=== PATIENT | female | born 1985 | race Hispanic/Latino ===

== ENCOUNTER 2019-12-06 14:09 | Emergency (ER) | payer OTHER, SELFPAY ==
[2019-12-06 14:30] VITALS: BP 132/77; PULSE 83; RESP 16; TEMP 37; O2SAT 98
--- NOTE | 2019-12-06 14:42 | ED.SKABFB ---
HPI - Skin/Abscess/Foreign Bdy General Chief complaint: Skin/Abscess/Foreign Body Stated complaint: possible spider bite Time Seen by Provider: 12/06/19 14:43 Source: patient and RN notes reviewed Mode of arrival: ambulatory Limitations: language barrier (malay speaker) History of Present Illness HPI narrative: This is a 34 years old female presented office for evaluation of insect bite on her right forearm yesterday. Lesion is red, painful, and itchy. No treatment prior to arrival. Tetanus is up-to-date. Information obtained will telephone translation. Related Data Allergies Allergy/AdvReac Type Severity Reaction Status Date / Time No Known Allergies Allergy Verified 12/06/19 14:33 Review of Systems Review of Systems: Narrative: CONSTITUTIONAL: Denies fever ENT: Denies difficulty breathing CARDIOVASCULAR: Denies palpitation RESPIRATORY: Denies dyspnea GASTROINTESTINAL: Denies nausea, vomiting SKIN:Reports right arm pain, swelling and redness from bite. She did not witness the type of insect MUSCULOSKELETAL: Reports right arm pain from the insect bite NEUROLOGIC: Denies lightheaded/nubness PMFSH Social History Social History Gender identity (if verbalized by the patient): Female Comments At time of signature, I agree with nursing past medical, surgical, social and family history. There is no relevant family history pertinent to the presenting complaint. Exam Narrative: Exam Narrative: GENERAL: This is a well-nourished, well-developed patient, in no apparent distress. NECK: Neck supple, non-tender without lymphadenopathy, masses or thyromegaly. CARDIOVASCULAR: Regular rate and rhythm without murmurs, gallops, or rubs. RESPIRATORY: Clear to auscultation. Breath sounds equal bilaterally. No wheezes, rales, or rhonchi. GASTROINTESTINAL: Abdomen soft, non-tender, nondistended. Bowel sounds are active. No guarding. NEURO: awake, alert, and oriented to person, place and time. There were no obvious focal neurologic abnormalities. Steady gait EXTREMITIES: Right upper anterior upper arm noted a localize nodule with erythema, edematous; likely a localize reaction to bite; no obvious lymphadenitis. Normal range of motion. [place] Coma Scale Eye Opening: Spontaneous 4 [place] Coma Scale Motor: Obeys Commands 6 [place] Coma Scale Verbal: Oriented 5 Course Vital Signs Vital signs: Vital Signs Temperature 98.6 F 05/25/20 14:30 Pulse Rate 83 12/06/19 14:30 Respiratory Rate 16 12/06/19 14:30 Blood Pressure 132/77 12/06/19 14:30 Pulse Oximetry 98 12/06/19 14:30 Temperature 98.6 F 12/06/19 14:30 Pulse Rate 83 12/06/19 14:30 Respiratory Rate 16 12/06/19 14:30 Blood Pressure 132/77 12/06/19 14:30 Pulse Oximetry 98 12/06/19 14:30 MDM - Skin/Abscess/Foreign Bdy MDM Narrative Medical decision making narrative: Discharge instructions reviewed with patient, as well as provided in writing per nursing staff. The instructions also include specific and strict return/GO TO THE ER as well as f/u information. All questions have been answered, and the patient deny any further questions with discharge and discharge plan. Differential Diagnosis Differential diagnosis: Likely abscess of skin or subcutaneous tissue, viral exanthem, dermatophytosis, urticaria, herpes zoster, allergic reaction to drug, cellulitis, eczema, insect bites, impetigo and contact dermatitis Critical Care Time Critical Care Time Critical Care Time: No Discharge Plan Discharge Clinical Impression: Insect bite Qualifiers: Encounter type: initial encounter Site of insect bite: upper arm Laterality: right Qualified Code(s): S40.861A - Insect bite (nonvenomous) of right upper arm, initial encounter Patient Disposition: Home, Self-Care Condition: Stable Instructions: Insect Bite or Sting (ED) Additional Instructions: Take medicine with food Put ice on af
== END 2019-12-06 14:57 | disposition home or self-care (01) ==
PROVIDERS: Emergency Provider Nurse Practitioner
DX: S40.861A Insect bite (nonvenomous) of right upper arm, initial encounter (principal); W57.XXXA Bitten or stung by nonvenomous insect and other nonvenomous arthropods, initial encounter
CPT/HCPCS: 99213; G0463

== ENCOUNTER 2020-11-07 19:28 | Emergency (ER) | payer OTHER, SELFPAY ==
[2020-11-07 19:37] VITALS: BP 126/73; PULSE 80; RESP 16; TEMP 37.3; O2SAT 100
--- NOTE | 2020-11-07 19:50 | ED.ABDPAIN ---
HPI - Abdominal Pain General Chief Complaint: Abdominal Pain Stated Complaint: Stomach Pain Time Seen by Provider: 11/07/20 19:50 Source: patient and RN notes reviewed Mode of arrival: ambulatory Limitations: no limitations and language barrier History of Present Illness HPI narrative: daughter translate 1 harry CASTELLON elicited complaint: abdominal pain Related Data Allergies Allergy/AdvReac Type Severity Reaction Status Date / Time No Known Allergies Allergy Verified 02/18/20 09:26 Review of Systems Review of Systems: Narrative: CONSTITUTIONAL: Denies fever, chills, or sweats. EYES: Denies visual changes, redness, or discharge. ENT: Denies rhinorrhea, congestion, sore throat, or otalgia. CARDIOVASCULAR: Denies chest pain, palpitations, or edema. RESPIRATORY: Denies cough or dyspnea. GASTROINTESTINAL: Denies abdominal pain, nausea, vomiting, or diarrhea. GENITOURINARY: Denies dysuria or hematuria. SKIN: Denies rash or itching. MUSCULOSKELETAL: Denies back pain, joint pain, or myalgia. NEUROLOGIC: Denies headache, numbness, or weakness. PSYCHIATRIC: Denies anxiety or depression. All systems reviewed & are unremarkable except as noted in HPI and below PMFSH Past Medical History Medical History (Updated 11/08/20 @ 00:00 by [facility]) Healthy adult Surgical History Surgical History No pertinent past surgical history Social History Social History Smoking status: Never smoker Gender identity (if verbalized by the patient): Female Comments At time of signature, agree with nursing past medical, surgical, social and family history. There is no relevant family history pertinent to the presenting complaint Exam Narrative: Exam Narrative: GENERAL: Well-appearing, well-nourished, and in no acute distress. HEAD: Normocephalic, atraumatic. EYES: PERRLA and EOMI. ENT: Nares clear, no rhinorrhea or epistaxis. Mucous membranes moist. NECK: Supple. CHEST: Clear to auscultation. No respiratory distress. HEART: Regular rate and rhythm. No murmur heard. Normal peripheral pulses. ABDOMEN: Soft, nontender, nondistended, normal active bowel sounds. EXTREMITIES: Normal range of motion. No edema. SKIN: Warm, dry, no rash. NEURO: No focal deficits. Alert and oriented x3. Course Vital Signs Vital signs: Vital Signs Temperature 37.3 C 11/07/20 19:37 Pulse Rate 80 11/07/20 19:37 Respiratory Rate 16 11/07/20 19:37 Blood Pressure 126/73 11/07/20 19:37 Pulse Oximetry 100 11/07/20 19:37 Temperature 37.3 C 11/07/20 19:37 Pulse Rate 80 11/07/20 19:37 Respiratory Rate 16 11/07/20 19:37 Blood Pressure 126/73 11/07/20 19:37 Pulse Oximetry 100 11/07/20 19:37 MDM - Abdominal Pain Differential Diagnosis Differential diagnosis: Likely abdominal pain, gastroenteritis and other (GERD) Medical Records Attestation: I reviewed the patient's medical records. Critical Care Time Critical Care Time Critical Care Time: No Discharge Plan Discharge Clinical Impression: Gastroesophageal reflux disease, Abdominal pain Patient Disposition: Home, Self-Care Condition: Stable Instructions: GERD (Gastroesophageal Reflux Disease) (ED) Additional Instructions: Increase oral fluids A bland diet can consist of--BRAT diet which is bananas, rice, applesauce, and toast Avoid fried, greasy, fatty, fried foods Avoid caffeine, nicotine, and alcohol Return to your regular diet in the next 3-4 days Start Prilosec daily Tylenol for pain Sometimes ibuprofen/Aleve can cause increased stomach upset [id number] Imodium if develop diarrhea Follow-up with her PCP if continued problems or uncontrolled pain If your symptoms persist, change or worsen significantly before you can contact your personal physician then please, without delay, go to the emergency department for further evaluation. Follow-u
--- NOTE | 2020-11-07 20:08 | ED.ABDPAIN ---
HPI - Abdominal Pain General Chief Complaint: Abdominal Pain Stated Complaint: Stomach Pain Time Seen by Provider: 11/07/20 19:50 Source: patient, family, RN notes reviewed and old records reviewed Mode of arrival: ambulatory Limitations: language barrier History of Present Illness HPI narrative: 35 year old female who presents to [facility] care with complaint of right upper abdominal pain for the past week duration. Patient speaks Georgian, daughter is here to translate. Patient denies any episodes of nausea, vomiting or diarrhea, states no known episodes of radiation to her back or any diaphoresis. Patient states that she has had normal bowel movement, no changes in diet or appetite or any relation to pain with meals. Patient denies any other family member ill, states pain with palpation and with some movements. MD elicited complaint: abdominal pain Pertinent past history: none Onset (ago): week(s) (1) Pain Consistency: intermittent Severity: moderate Pain scale (0-10): 5 Quality: aching Migration to: no migration Related Data Allergies Allergy/AdvReac Type Severity Reaction Status Date / Time No Known Allergies Allergy Verified 02/18/20 09:26 Review of Systems Review of Systems: Narrative: CONSTITUTIONAL: Denies fever, chills, or sweats. EYES: Denies visual changes, redness, or discharge. ENT: Denies rhinorrhea, congestion, sore throat, or otalgia. CARDIOVASCULAR: Denies chest pain, palpitations, or edema. RESPIRATORY: Denies cough or dyspnea. GASTROINTESTINAL: Positive for right upper abdominal pain, no nausea, vomiting, or diarrhea. GENITOURINARY: Denies dysuria or hematuria. SKIN: Denies rash or itching. MUSCULOSKELETAL: Denies back pain, joint pain, or myalgia. NEUROLOGIC: Denies headache, numbness, or weakness. PSYCHIATRIC: Denies anxiety or depression. All systems reviewed & are unremarkable except as noted in HPI and below PMFSH Past Medical History Medical History (Updated 11/14/20 @ 08:11 by Trish Torres NP) Headache Surgical History Surgical History No pertinent past surgical history Family History Family History (Updated 11/14/20 @ 08:11 by Trish Torres NP) Other No significant family history Social History Social History (Updated 11/12/20 @ 21:11 by Trish Torres NP) Smoking status: Never smoker Alcohol intake: never Substance use: never Living arrangements: with family Gender identity (if verbalized by the patient): Female Comments At time of signature, agree with nursing past medical, surgical, social and family history. There is no relevant family history pertinent to the presenting complaint Exam Narrative: Exam Narrative: GENERAL: Well-appearing, well-nourished, and in no acute distress. HEAD: Normocephalic, atraumatic. EYES: PERRLA and EOMI. ENT: Nares clear, no rhinorrhea or epistaxis. Mucous membranes moist.TM's normal with good light reflex, throat pink with no exudates ,lesions or tonsil enlargement NECK: Supple.no lymphadenopathy CHEST: Clear to auscultation. No respiratory distress.SAO2 100% on room air HEART: Regular rate and rhythm. No murmur heard. Normal peripheral pulses. ABDOMEN: Soft, tender right upper abdomen, nondistended, normal active bowel sounds.No radiation of pain, no associated nausea or vomiting, denies any diarrhea episodes, no diaphoresis or radiation of pain to back or other areas of abdomen. EXTREMITIES: Normal range of motion. No edema. SKIN: Warm, dry, no rash. NEURO: No focal deficits. Alert and oriented x3. Course Vital Signs Vital signs: Vital Signs Temperature 37.3 C 11/07/20 19:37 Pulse Rate 80 11/07/20 19:37 Respiratory Rate 16 11/07/20 19:37 Blood Pressure 126/73 11/07/20 19:37 Pulse Oximetry 100 11/07/20 19:37 Temperature 37.3 C 11/07/20 19:37 Pulse Rate 80 11/07/20 19:37 Respiratory Rate 16 11/07/20 19:37 Blood Pressure 126/73
== END 2020-11-07 20:22 | disposition home or self-care (01) ==
PROVIDERS: Emergency Provider Registered Nurse
DX: K21.9 Gastro-esophageal reflux disease without esophagitis (principal)
CPT/HCPCS: 99213; G0463

== ENCOUNTER 2023-04-30 08:19 | Emergency (ER) | payer OTHER, SELFPAY ==
--- NOTE | 2023-04-30 08:20 | ED.GENADULT ---
HPI - General Adult General Chief complaint: Upper Respiratory Infection Stated complaint: Bodyaches Time Seen by Provider: 04/30/23 08:29 Source: patient, RN notes reviewed, old records reviewed and software test and validation engineer (Chose to use daughter, tele software test and validation engineer offered) Mode of arrival: ambulatory Limitations: no limitations History of Present Illness HPI narrative: 37-year-old female presents to the [facility] with complaints of body aches, headache for 2 days. Has taken Excedrin. Denies fevers, chest pain, abdominal pain. Onset (ago): day(s) (1) Treatments prior to arrival: other (Excedrin) Related Data Allergies Allergy/AdvReac Type Severity Reaction Status Date / Time No Known Allergies Allergy Verified 04/30/23 08:25 Review of Systems Review of Systems: All systems reviewed & are unremarkable except as noted in HPI and below Constitutional: Constitutional: Reports as per HPI, Reports body ache(s), Reports fatigue and Reports headache(s) Eyes: Eyes: Reports no additional eye complaints ENT: Reports system reviewed and no additional complaints, except as documented Cardiovascular: Cardiovascular: Reports no additional cardiovascular complaints, Denies chest pain and Denies dyspnea Respiratory: Respiratory: Reports no additional respiratory complaints, Denies chest congestion, Denies cough and Denies dyspnea Gastrointestinal: Gastrointestinal: Reports no additional gastrointestinal complaints, Denies abdominal pain, Denies nausea and Denies vomiting Musculoskeletal: Musculoskeletal: Reports no additional musculoskeletal complaints Integumentary/Breasts: Skin/Breast: Reports system reviewed and no additional complaints, except as docu Neurologic: Reports system reviewed and no additional complaints, except as documented Psychiatric: Psychiatric: Reports no additional psychiatric complaints Allergic/Immunologic: Allergic/Immunologic: Reports no additional allergic/immunologic complaints [facility] Past Medical History Medical History (Updated 04/30/23 @ 08:48 by Krista Herrera APRN) Fibroids Uterine, followed by truck crane operator helper provider Headache Surgical History Surgical History No pertinent past surgical history Family History Family History Other No significant family history Social History Social History Smoking status: Never smoker Alcohol intake: never Substance use: never Living arrangements: with family Gender identity (if verbalized by the patient): Female Comments At the time of my signature, I reviewed and agree with the nursing past medical, surgical, social, and family history. There is no relevant family history pertinent to the patient complaint. Exam Const: General: cooperative, healthy appearing, comfortable, no acute distress, well developed, alert and well nourished Nutritional Appearance: well nourished Orientation/consciousness: patient oriented x3 Limitations: no limitations HENMT: Head: normal to inspection Ears: hearing grossly normal bilaterally, external ears normal, TM's normal bilaterally, EAC's normal, mastoids normal and no periauricular adenopathy Face/Nose/Sinus: Normal external nose present, Normal nares present, Normal nasal mucous membranes and turbinates present, normal facial exam and face symmetric Face and sinus: normal facial exam and face symmetric Mouth: Yes Normal oral and palatal mucosa present, Yes lip normal and Yes moist mucous membranes Throat: posterior oropharynx normal, uvula midline and postnasal drainage Eyes: General: appearance normal, both eyes and all related structures Alignment and Position: alignment normal Periorbital: periorbital findings normal Pupils: Equal, round and reactive pupils present EOM: EOMs intact bilaterally Neck: Neck: normal visual inspection, full ROM, no lymphaden
[2023-04-30 08:32] VITALS: BP 126/52; PULSE 55; RESP 16; TEMP 36.4; O2SAT 100
== END 2023-04-30 08:55 | disposition home or self-care (01) ==
PROVIDERS: Emergency Provider Nurse Practitioner; PCP Physician Assistant
DX: R52 Pain, unspecified (principal); J06.9 Acute upper respiratory infection, unspecified; Z20.822 Contact with and (suspected) exposure to COVID-19
CPT/HCPCS: 87426; 87804; 99213; C9803; G0463

== ENCOUNTER 2023-06-25 16:14 | Emergency (ER) | payer OTHER, SELFPAY ==
[2023-06-25 16:28] VITALS: BP 131/62; PULSE 70; RESP 16; TEMP 36.9; O2SAT 98
--- NOTE | 2023-06-25 17:08 | ED.URI ---
HPI - URI/Sore Throat General Chief Complaint: Upper Respiratory Infection Stated Complaint: Sinus Time Seen by Provider: 06/25/23 17:08 Source: patient Mode of arrival: ambulatory Limitations: no limitations History of Present Illness HPI Narrative: 38-year-old female presents with complaint of cough and chest congestion for 3 weeks. Saw her primary care physician and was given benzonatate. States did not help her symptoms. Continues to cough. Cough worse at night. No shortness of breath or chest pain at this time. Afebrile. Patient also reports diarrhea and fatigue that started today. Had 5 episodes of diarrhea today. No abdominal pain. All systems reviewed and negative except as noted above. Related Data Home Medications Medication Instructions Recorded Confirmed escitalopram oxalate 5 mg tablet 5 mg PO DAILY 06/25/23 06/25/23 Allergies Allergy/AdvReac Type Severity Reaction Status Date / Time No Known Allergies Allergy Verified 06/25/23 16:44 Review of Systems Review of Systems: CONSTITUTIONAL: Denies fever, chills, or sweats. EYES: Denies visual changes, redness, or discharge. ENT: Denies rhinorrhea, congestion, sore throat, or otalgia. CARDIOVASCULAR: Denies chest pain, palpitations, or edema. RESPIRATORY: Reports cough, chest congestion. Denies dyspnea. GASTROINTESTINAL: Denies abdominal pain, nausea, vomiting. Reports diarrhea. GENITOURINARY: Denies dysuria or hematuria. SKIN: Denies rash or itching. MUSCULOSKELETAL: Denies back pain, joint pain, or myalgia. NEUROLOGIC: Denies headache, numbness, or weakness. PSYCHIATRIC: Denies anxiety or depression. All other systems reviewed are negative, except as documented in HPI. 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 There is no relevant family history pertinent to the presenting complaint. Exam Narrative: GENERAL: This is a well-nourished, well-developed patient, in no apparent distress. HEAD: normocephalic, atraumatic. EYES: PERRL. Sclera clear/white. Vision is grossly intact. EARS: External ears normal, auditory canals clear and without drainage, TMs normal without perforation. Hearing grossly intact. NOSE: External nose normal with no obvious nasal discharge, nares without redness, no rhinorrhea. THROAT: Mucous membranes moist, posterior pharynx clear. NECK: Neck supple, non-tender without lymphadenopathy, masses or thyromegaly. CARDIOVASCULAR: Regular rate and rhythm without murmurs, gallops, or rubs. RESPIRATORY: decreased lung sounds to lower lung kenney Otherwise normal. Breath sounds equal bilaterally. No wheezes, rales, or rhonchi. GASTROINTESTINAL: Abdomen soft, non-tender, nondistended. Bowel sounds are active. No hepato-splenomegaly, or palpable masses. No guarding. SKIN: warm, Dry, intact with no suspicious lesions or rash, good texture and turgor. NEURO: awake, alert, and oriented to person, place and time. There were no obvious focal neurologic abnormalities. EXTREMITIES: No joint tenderness, effusion, or edema noted. Course Course Level of Care: Express Care Visit Vital Signs Vital signs: Vital Signs Temperature 36.9 C 06/25/23 16:28 Pulse Rate 70 06/25/23 16:28 Respiratory Rate 16 1
== END 2023-06-25 17:45 | disposition home or self-care (01) ==
PROVIDERS: Emergency Provider Nurse Practitioner Family; PCP Physician Assistant
DX: R19.7 Diarrhea, unspecified (principal); J20.8 Acute bronchitis due to other specified organisms
CPT/HCPCS: 87804; 99213; G0463

== ENCOUNTER 2024-03-26 16:23 | Emergency (ER) | payer OTHER, SELFPAY ==
--- NOTE | 2024-03-26 16:36 | ED.FEMALEGU ---
HPI - Female Genitourinary General Chief complaint: Urogenital-Female Stated complaint: Right Side Flank Pain Time Seen by Provider: 03/26/24 16:56 Source: patient, RN notes reviewed, old records reviewed and director employee safety and health (Turkish, chose to use friend over patient service) Mode of arrival: ambulatory Limitations: no limitations History of Present Illness HPI Narrative: 38-year-old female presents to the [facility] with right lower quadrant pain that started Friday, has been increasing. Patient also reports that the area feels swollen. Denies any urinary symptoms. Last menstrual period was 1 week ago. Denies any abdominal surgeries in the past Onset (ago): day(s) (2) Related Data Home Medications Medication Instructions Recorded Confirmed escitalopram oxalate 5 mg tablet 5 mg PO DAILY 06/25/23 03/26/24 Allergies Allergy/AdvReac Type Severity Reaction Status Date / Time No Known Allergies Allergy Verified 03/26/24 16:25 Review of Systems Review of Systems: All systems reviewed & are unremarkable except as noted in HPI and below Constitutional: Constitutional: Reports no additional constitutional complaints Eyes: Eyes: Reports no additional eye complaints ENT: Reports system reviewed and no additional complaints, except as documented Cardiovascular: Cardiovascular: Reports no additional cardiovascular complaints, Denies chest pain and Denies dyspnea Respiratory: Respiratory: Reports no additional respiratory complaints, Denies chest congestion, Denies cough and Denies dyspnea Gastrointestinal: Gastrointestinal: Reports as per HPI, Reports abdominal pain (Right lower quadrant), Denies nausea and Denies vomiting Musculoskeletal: Musculoskeletal: Reports no additional musculoskeletal complaints Integumentary/Breasts: Skin/Breast: Reports system reviewed and no additional complaints, except as docu Neurologic: Reports system reviewed and no additional complaints, except as documented Psychiatric: Psychiatric: Reports no additional psychiatric complaints Allergic/Immunologic: Allergic/Immunologic: Reports no additional allergic/immunologic complaints PMFSH Past Medical History Medical History Fibroids Uterine, followed by cosmetic sales provider Headache Surgical History Surgical History No pertinent past surgical history Family History Family History Other No significant family history Social History Social History (Reviewed 03/26/24 @ 17:03 by JUNIOR Crain Smoking status: Never smoker Alcohol intake: never Substance use: never Living arrangements: with family Gender identity (if verbalized by the patient): Female Comments At the time of my signature, I reviewed and agree with the nursing past medical, surgical, social, and family history. There is no relevant family history pertinent to the patient complaint. Exam Const: General: cooperative, healthy appearing, comfortable, no acute distress, well developed, alert and well nourished Nutritional Appearance: well nourished Orientation/consciousness: patient oriented x3 Limitations: no limitations HENMT: Head: normal to inspection Ears: hearing grossly normal bilaterally and external ears normal Face/Nose/Sinus: Normal external nose present, Normal nares present, Normal nasal mucous membranes and turbinates present, normal facial exam and face symmetric Face and sinus: normal facial exam and face symmetric Eyes: General: appearance normal, both eyes and all related structures Alignment and Position: alignment normal Periorbital: periorbital findings normal Neck: Neck: normal visual inspection, full ROM, no lymphadenopathy and no meningeal signs Chest: Chest palpation & inspection: normal inspection of the chest Resp: Effort & Inspection: normal respiratory effor
[2024-03-26 16:37] VITALS: BP 94/74; PULSE 68; RESP 19; O2SAT 99
[2024-03-26 16:57] VITALS: TEMP 37.1
== END 2024-03-26 17:05 | disposition short-term general hospital (02) ==
PROVIDERS: Emergency Provider Nurse Practitioner; PCP Physician Assistant
DX: R10.31 Right lower quadrant pain (principal)
CPT/HCPCS: 99212; G0463

== ENCOUNTER 2024-03-26 18:09 | Emergency (ER) | payer OTHER, SELFPAY ==
--- NOTE | ~2024-03-26 | CT_ITS ---
CT abdomen pelvis w con Ordering provider: Marsha Hargrove PA-C History: 38 years Female with . RLQ abd pain . Comparison: None. Technique: CT abdomen and pelvis with IV and without oral contrast. Automated exposure control and it erative reconstruction technique were employed. The dose-length product was 355.22 mGy-cm. 100 mL Omn ipaque 350 was given IV. Radiation reduction Findings: VISUALIZED LOWER CHEST: Normal. UPPER ABDOMINAL ORGANS: Liver: Normal. Gallbladder: Normal. Spleen: Normal. Stomach/duodenum: Normal. Pancreas: Normal. Adrenals: Normal. Kidneys: Normal. PELVIC ORGANS: The bladder is normal. Uterus: Normal. Minimal fluid is seen in the uterine cavity.Ri ght ovarian cyst is seen measuring 2.6 cm. Hypodensity seen adjacent to the right ovary which may be dilated tube. BOWEL AND MESENTERY: Colon: No evidence of diverticulitis. Normal appendix. Small Bowel: Normal. No obstruction. Peritoneum/mesentery: No free air or free fluid. No mesenteric lymphadenopathy. RETROPERITONEUM: Normal aorta. No retroperitoneal lymphadenopathy. MUSCULOSKELETAL: Superficial soft tissues: The superficial soft tissues are normal. Bones: Normal spine. IMPRESSION: 1. No evidence of appendicitis, diverticulitis or intestinal obstruction. 2. Right ovarian cyst. Possible right hydrosalpinx. Reviewed, dictated and finalized at location A.
--- NOTE | 2024-03-26 18:14 | ED.ABDPAIN ---
HPI - Abdominal Pain General Chief Complaint: Abdominal Pain <Marsha Hargrove PA-C - Last Filed: 03/26/24 18:23> Stated Complaint: right lower abd pain <Marsha Hargrove PA-C - Last Filed: 03/26/24 18:23> Time Seen by Provider: 03/26/24 18:14 <Marsha Hargrove PA-C - Last Filed: 03/26/24 18:23> Focused HPI: Patient is a 38 y/o female who presents to the ED with c/o lower abdominal pain. Patient reports having intermittent right lower abdominal pain since Friday. Denies any aggravating or alleviating factors. Has not taken anything for the pain. Denies hx of similar pain. Denies N/V/D, dysuria, hematuria, fevers. Does have hx of ovarian cysts. GENERAL: Well-appearing, well-nourished, and in no acute distress. HEAD: Normocephalic, atraumatic. CHEST: Clear to auscultation. ?No respiratory distress. HEART: Regular rate and rhythm.? ABD: Mild TTP in RLQ, no rebound. Normoactive BS NEURO: ?Alert and oriented x3. Patient screened in triage and initial orders placed.? ?Additional care and disposition to be based upon?diagnostic testing and treatment. <Marsha Hargrove PA-C - Last Filed: 03/26/24 18:23> Source: patient <Marsha Hargrove PA-C - Last Filed: 03/26/24 18:23> Mode of arrival: ambulatory <Marsha Hargrove PA-C - Last Filed: 03/26/24 18:23> Limitations: no limitations <Marsha Hargrove PA-C - Last Filed: 03/26/24 18:23> language barrier (Yoruba speaking) <Maren Marie MD - Last Filed: 03/26/24 22:18> History of Present Illness HPI narrative: Onion Tier Arthur # [id number] Agree with the above with the following additions/corrections: 38-year-old female with last menstrual period the last week of February presents with right lower quadrant abdominal pain that has been occurring intermittently since Friday. She will have episodes that last briefly. Today while working she felt like there was a feeling of fullness and she nearly went home. She was in a slicing at [facility] this but they recommended that she present to the emergency department for further workup. She describes it as a sharp pain. No nausea, vomiting, diarrhea, fever. No dysuria, hematuria, urgency or frequency. She states this has never happened before she does not follow regularly with Gastroenterology. Her last bowel movement was approximately 3:00 p.m. she denies any constipation or bloody stools. Pain radiates to her ribs. OBgyn through [facility], last seen 6 months ago. 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
[2024-03-26 18:15] VITALS: BP 154/83; PULSE 73; RESP 18; TEMP 36.6; O2SAT 100
[2024-03-26 18:30] LABS: Basophils Percent Auto 0.4 % (0.2-1.2); Eosinophils Absolute Auto 0.2 K/mm3 (0-0.3); Eosinophils Percent Auto 2.2 % (0-4.4); Hematocrit 38.5 % (37.0-47.0); Immature Granulocyte Absolute 0.02 K/mm3 (0.00-0.031); Immature Granulocyte Percent A 0.2 % (0-0.5); Lymphocytes Absolute Auto 2.66 K/mm3 (0.9-3.2); Lymphocytes Percent Auto 26.8 % (18.3-44.2); Mean Corpuscular HGB Conc 33.8 g/dl (32-36); Mean Corpuscular Hemoglobin 29.7 pg (26-34); Mean Corpuscular Volume 87.9 fl (80-100); Mean Platelet Volume 9.8 fl (7.4-10.4); Monocytes Absolute Auto 0.9 K/mm3 (0.1-0.6); Neutrophils Absolute Auto 6.1 K/mm3 (1.3-6.7); Neutrophils Percent Auto 61.4 % (45.5-73.1); Platelet Count Result 313 k/mm3 (150-375); Red Blood Count 4.38 M/mm3 (4.2-5.4); White Blood Count 9.9 K/mm3 (4.5-10.0)
[2024-03-26 19:00] LABS: Alanine Aminotransferase 25 U/L (6-35); Albumin Level 4.2 g/dL (3.5-5.1); Alkaline Phosphatase 59 U/L (38-126); Anion Gap 9 mmol/L (4-12); Aspartate Amino Transferase 28 U/L (14-36); Bilirubin,Total 0.5 mg/dL (0.2-1.3); Blood Urea Nitrogen 11 mg/dL (7-17); Calcium 8.8 mg/dL (8.4-10.2); Carbon Dioxide 25 mmol/L (22-30); Chloride 103 mmol/L (98-107); Estimated CRCL calculation 70 ml/min; Estimated Glomerular Filt Rate > 60; Glucose 112 mg/dL (65-110); Lipase 124 U/L (23-300); Potassium 3.5 mmol/L (3.4-5.0); Sodium 137 mmol/L (137-145)
[2024-03-26 19:03] LABS: Bacteria Urine None Seen /hpf; Non Pathogenic Casts 0-2; Squamous Epithelial Cell Urine None Seen /hpf (Few); WBC Urine 0-5 /hpf (0-3)
[2024-03-26 19:09] LABS: BEDSIDEPREGUCG Negative (Negative)
[2024-03-26 19:10] LABS: Add Urine Microscopic? YES; Appearance Urine Clear (Clear); Bilirubin Urine Negative (Negative); Blood Urine 2+ (Negative); Color Urine Yellow (Yellow); Glucose Urine UA Negative (Negative); Ketones Urine Negative (Negative); Leukocyte Esterase Ur Negative LEU/UL (Negative); Nitrate Urine Negative (Negative); Protein Urine Negative (Negative); Specific Grav Ur 1.007 (1.001-1.035); Urobilinogen Urine 0.2 mg/dL (<2.0)
[2024-03-26 21:31] LABS: Trichomonas Vag PCR NOT DETECTED (NOT DETECTE)
[2024-03-26] MEDS: ACETAMINOPHEN 500 MG TABLET 1000 MG PO (21:45)
[2024-03-26 21:53] LABS: Chlamydia trachomatis NOT DETECTED (NOT DETECTE); Neisseria gonorrhoeae PCR NOT DETECTED (NOT DETECTE)
[2024-03-26 22:26] VITALS: BP 129/81; PULSE 60; RESP 16; TEMP 37; O2SAT 100
== END 2024-03-26 22:28 | disposition home or self-care (01) ==
PROVIDERS: Physician Assistant; Emergency Provider Student in an Organized Health Care Education/Training Program; PCP Physician Assistant
DX: N83.201 Unspecified ovarian cyst, right side (principal); R31.29 Other microscopic hematuria; Z11.3 Encounter for screening for infections with a predominantly sexual mode of transmission
CPT/HCPCS: 36415; 74177; 80053; 81001; 81025; 83690; 85025; 87491; 87591; 87661; 99284; A9270; Q9967

== ENCOUNTER 2024-08-11 02:42 | Day surgery (SDC) | payer SELFPAY ==
[2024-08-11] VITALS (14 sets, daily range): BP systolic 103–171; BP diastolic 47–78; PULSE 67–90; RESP 12–20; TEMP 36.2–36.5; O2SAT 97–100
--- NOTE | ~2024-08-11 | CT_ITS ---
EXAMINATION: CTA chest abdomen pelvis DATE: 08/11/2024 08:16 INDICATION: Chest pain. TECHNIQUE: Computed tomographic angiography (CTA) of the chest, abdomen, and pelvis was performed wit h 100 mL Omnipaque-350 intravenous contrast. Automated exposure control and iterative reconstruction technique were employed. The dose-length product was 521.19 mGy-cm. Maximum intensity projection 3D-r econstructions of the aorta and other arteries were constructed by the technologist on a separate wor kstation. COMPARISON: CT abdomen and pelvis 03/26/2024 FINDINGS: CHEST CTA: There is no pneumonia or pleural effusion. The heart size is normal. No pericardial effusion. The tho racic aorta is normal in caliber. There is a small sliding hiatal hernia. There is mild thoracic spon dylosis. ABDOMEN AND PELVIS CTA: The liver and spleen are normal. There are gallstones in the gallbladder, which is distended with wal l thickening, consistent with acute cholecystitis. The pancreas, adrenal glands, and kidneys are norm al. There are no dilated loops of bowel. The appendix is normal. There are no pathologically enlarged lymph nodes. There is no free intraperitoneal fluid. There is a 2.4 cm dominant follicle in left ova ry. Abdominal aorta is normal in caliber. There is no significant stenosis of celiac axis, superior m esenteric artery, the renal arteries, or inferior mesenteric artery. There is mild lumbar spondylosis . IMPRESSION: 1. Acute cholecystitis. Reviewed, dictated and finalized at location A. NG MACHINE OPERATOR IMPRESSION: 1. Acute cholecystitis.
--- NOTE | ~2024-08-11 | XR_ITS ---
EXAMINATION: XR chest 2V 08/11/2024 03:01 INDICATION: Chest pain PROCEDURE: 2 view chest COMPARISON: No prior studies for comparison. FINDINGS: The lungs are clear. The cardiomediastinal silhouette is within normal limits. There are no pleural effusions. There is no pneumothorax suspected. IMPRESSION: 1: NO ACUTE CARDIOPULMONARY DISEASE. Reviewed, dictated and finalized at location A. D OPERATIONS TECHNICIAN
--- NOTE | 2024-08-11 02:43 | ECG_ITS ---
Test Date: 2024-08-11 02:50:48 Measurements Intervals [place] Rate: 54 P: 28 FL: 170 QRS: -21 QRSD: 81 T: 19 QT: 402 QTc: 382 Interpretive Statements SINUS BRADYCARDIA LOW QRS VOLTAGE IN PRECORDIAL LEADS [QRS DEFLECTION < 1.0 mV IN CHEST LEADS] POSSIBLE ANTERIOR MYOCARDIAL INFARCTION , OF INDETERMINATE AGE [30 ms Q WAVE IN V3/V4, OR R < 0.2 mV IN V4] No previous ECG available for comparison Electronically Signed On 08-11-2024 15:58:26 BOAT PULLER by Sofia Valadez M.D.
--- OUTSIDE RECORDS SUMMARY | 2024-08-11 02:44 | XMS_ITS | Clinical Summary ---
Author Organization [facility] Address [address] [place] [address] Care Team Providers Care Turn Down Attendant Name Role Phone Yadira Asencio Primary Care Provider + Allergies No known active allergies Medications traMADoL (ULTRAM) 50 mg tablet Take 1 tablet (50 mg total) by mouth every 6 (six) hours as needed for pain 02/11/2023 Active Active Problems No known active problems Family History Medical History Relation Name Comments Breast cancer Father Breast cancer Mother's Sister Relation Name Status Comments Father Mother's Sister Social History Tobacco Use Types Packs/Day Years Used Date Smoking Tobacco: Never Passive Smoke Exposure: Never Smokeless Tobacco: Never Tobacco Cessation:Counseling Given: Not Answered Personal Safety Answer Date Recorded Getting School Help Needed Not on file 06/24 Comments No Sex and Gender Information Value Date Recorded Sex Assigned at Not on file Legal Sex Female 2:45 PM CDT Gender Identity Not on file Sexual Orientation Not on file Obstetrics History Last Filed Vital Signs Vital Sign Reading Time Taken Comments Blood Pressure 133/76 03/07/2023 2:20 PM CDT Pulse 60 03/07/2023 2:20 PM CDT Temperature - - Respiratory Rate - - Oxygen Saturation 99% 03/07/2023 2:20 PM CDT Inhaled Oxygen Concentration - - Weight 73.5 kg (162 lb) 03/31/2023 8:15 AM CDT Height 160 cm (5' 3 ) 03/31/2023 8:15 AM CDT Body Mass Index 28.7 03/31/2023 8:15 AM CDT Plan of Treatment Health Maintenance Due Date Last Done Comments Cervical Cancer Screening 1983 Depression Screening 1983 Hepatitis C Screening 1983 DTaP/Tdap/Td Vaccine (1 - Tdap) 1994 Varicella Vaccines (1 of 2 - 13+ 2-dose series) 1996 Hepatitis B Screening 2001 Regular Well Visit/Exam 18-64 2001 Influenza Vaccine (#1) 2024 Breast Cancer Screening-Mammogram 04/02/2025 04/02/2024, 03/31/2023 HPV Vaccines Aged Out No longer eligi ble based on patient's age to complete this topic Pneumococcal vaccine <65 Aged Out No longer eligible based on patient's age to complete this topic Procedures Procedure Name Priority Date/Time Associated Diagnosis Comments SCREENING MAMMOGRAM BILATERAL W GERARD Schedule Routine, Read Routine (OP Routine) 04/02/2024 2:20 PM CDT Family history of breast cancer Increased risk of breast cancer Dense breast tissue from Last 3 Months or Most Recently Relevant to Health Maintenance Results * Screening Mammogram Bilateral W Gerard (04/02/2024 2:20 PM CDT) Anatomical Region Laterality Modality Breast Bilateral Mammography Narrative 04/05/2024 3:14 PM CDT Mammogram Technique: Bilateral Digital Breast Tomosynthesis, Bilateral C-view 2D Screening mammogram. ??Views obtained: ??bilateral craniocaudal and bilateral mediolateral oblique. ??Computer Aided Detection was performed. Mammogram Findings: The present examination has been compared to a prior imaging study performed at [facility] on 03/31/2023. The breasts are heterogeneously dense, which may obscure small masses. There is no suspicious abnormality in either breast. Impression: There is no mammographic evidence of malignancy. Annual screening mammography is recommended. If supplemental screening is desired, breast MRI would be recommended in this patient with heterogeneously dense breasts. OVERALL FINAL ASSESSMENT: BI-RADS CATEGORY 1: ??Negative. Procedure Note Saskia Godinez MD - 04/05/2024 Mammogram Technique: Bilateral Digital Breast Tomosynthesis, Bilateral C-view 2D Screening mammogram. Views obtained: bilateral craniocaudal and bilateral mediolateral oblique. Computer Aided Detection was performed. Mammogram Findings: The present examination has been compared to a prior imaging study performed at [facility] on 03/31/2023. The breasts are heterogeneously dense, which may obscure small masses. There is no suspicious abnormality in either breast. Impression: There is no mammographic evidence of malignancy. Annual screening mammography is recommended. If supplemental screeningis desired, breast MRI would be recommended in this patient with heterogeneously dense breasts. OVERALL FINAL ASSESSMENT: BI-RADS CATEGORY 1: Negative. Yolanda Hinson NP IMG MAMMO PROCEDURES Final Result from Last 3 Months or Most Recently Relevant to Health Maintenance Insurance Care Teams Turn Down Attendant Relationship Specialty Start Date End Date Yadira Asencio PA [address] [place] [id number] PCP - General Physician Plywood Layup Line Core Feeder 05/09/23
--- OUTSIDE RECORDS SUMMARY | 2024-08-11 02:44 | XMS_ITS | Referral Summary ---
Author Organization [facility] Address [address] [place] [address] Care Team Providers Care Stockbroker Name Role Phone Yadira Asencio Primary Care Provider + Allergies No known active allergies Medications traMADoL (ULTRAM) 50 mg tablet Take 1 tablet (50 mg total) by mouth every 6 (six) hours as needed for pain 02/11/2023 Active Active Problems No known active problems Social History Tobacco Use Types Packs/Day Years [...] on file Sexual Orientation Not on file Last Filed Vital Signs Vital Sign Reading [...] 03/31/2023 8:15 AM CDT Plan of Treatment Not on file Procedures Procedure Name Priority Date/Time Associated Diagnosis [...] to a prior imaging study performed at [facility] on 03/31/2023. The breasts are heterogeneously dense, [...] to a prior imaging study performed at [facility] on 03/31/2023. The breasts are heterogeneously dense, [...] Most Recently Relevant to Health Maintenance Insurance [facility] Care Teams Stockbroker Relationship Specialty Start Date End Date Yadira Asencio PA [address] [place] [address] PCP - General Physician Cloth Finishing Range Tender 05/09/23
--- OUTSIDE RECORDS SUMMARY | 2024-08-11 02:44 | XMS_ITS | Clinical Summary ---
Author Organization [facility] Care Team Providers Care Custom Bow Maker Name Role Phone Unavailable Primary Care Provider Unavailabl e Social History Tobacco Use Types Packs/Day Years Used Date Smoking Tobacco: Never Assessed Comments Unknown Sex and Gender Information Value Date Recorded Sex Assigned at Not on file Legal Sex Female 2:43 PM MEN'S SWIM COACH Gender Identity Not on file Sexual Orientation Not on file Plan of Treatment Health Maintenance Due Date Last Done Comments Hepatitis C Virus (HCV) Screening 1983 Hepatitis B Immunization (1 of 3 - 19+ 3-dose series) 2002 Pap Smear 2004 Cervical Cancer Screening (CCS) 2013 HPV/Cotest 2013 Discussion re Starting/Frequ ency of Mammograms 2023 Influenza Immunization (#1) 2024 04/14/2017 SARS-COV-2 Immunization ( season) 2024 Respiratory Syncytial Virus (RSV) Immunization (Adult) (1 - 1-dose 75+ series) 2058 DTaP/Tdap/Td Immunization Discontinued 04/14/2017 TdaP Immunization Completed 04/14/2017 Meningococcal Immunization (ACWY) Aged Out No longer eligible based on patient's age to complete this topic Pneumococcal Immunization Combined Aged Out No longer eligible b ased on patient's age to complete this topic Rotavirus Immunization Aged Out No lo nger eligible based on patient's age to complete this topic
[2024-08-11 03:05] LABS: Basophils Percent Auto 0.2 % (0.2-1.2); Eosinophils Absolute Auto 0.1 K/mm3 (0-0.3); Eosinophils Percent Auto 1.3 % (0-4.4); Hematocrit 39.1 % (37.0-47.0); Hemoglobin 13.3 g/dL (12.0-15.0); Immature Granulocyte Absolute 0.03 K/mm3 (0.00-0.031); Immature Granulocyte Percent A 0.3 % (0-0.5); Lymphocytes Absolute Auto 1.53 K/mm3 (0.9-3.2); Lymphocytes Percent Auto 16.5 % (18.3-44.2); Mean Corpuscular Hemoglobin 29.4 pg (26-34); Mean Corpuscular Volume 86.5 fl (80-100); Mean Platelet Volume 9.8 fl (7.4-10.4); Monocytes Absolute Auto 0.4 K/mm3 (0.1-0.6); Monocytes Percent Auto 4.3 % (2.6-8.5); Neutrophils Absolute Auto 7.2 K/mm3 (1.3-6.7); Neutrophils Percent Auto 77.4 % (45.5-73.1); Platelet Count Result 317 k/mm3 (150-375); Red Blood Count 4.52 M/mm3 (4.2-5.4); Red Cell Distribution Width 12.1 % (11.5-14.5); White Blood Count 9.3 K/mm3 (4.5-10.0)
[2024-08-11 03:16] LABS: Alanine Aminotransferase 48 U/L (6-35); Albumin Level 4.4 g/dL (3.5-5.1); Alkaline Phosphatase 102 U/L (38-126); Anion Gap 11 mmol/L (4-12); Aspartate Amino Transferase 55 U/L (14-36); Bilirubin,Total 0.8 mg/dL (0.2-1.3); Blood Urea Nitrogen 13 mg/dL (7-17); Carbon Dioxide 25 mmol/L (22-30); Chloride 101 mmol/L (98-107); Estimated CRCL calculation 100 ml/min; Estimated Glomerular Filt Rate > 60; Glucose 140 mg/dL (65-110); Lipase 97 U/L (23-300); Potassium 4.2 mmol/L (3.4-5.0); Sodium 137 mmol/L (137-145)
[2024-08-11 03:18] LABS: Prothrombin Time 13.5 Seconds (11.1-14.7)
[2024-08-11 03:19] LABS: Partial Thromboplastin Time 30.1 Seconds (22.3-36.8)
[2024-08-11 03:27] LABS: Troponin I < 0.012 ng/mL (0.000-0.034)
[2024-08-11] MEDS: ASPIRIN 81 MG CHEWABLE TABLET 324 MG PO (05:19)
[2024-08-11 07:00] LABS: Troponin I < 0.012 ng/mL (0.000-0.034)
--- OUTSIDE RECORDS SUMMARY | 2024-08-11 07:03 | XMS_ITS | Clinical Summary ---
Author Organization [facility] Address [address] [place] [address] Care Team Providers Care Tank Car Cleaner Name Role Phone Yadira Asencio Primary Care [...] to a prior imaging study performed at [facility] on 03/31/2023. The breasts are heterogeneously [...] to a prior imaging study performed at [facility] on 03/31/2023. The breasts are heterogeneously [...] Relevant to Health Maintenance Insurance Care Teams Tank Car Cleaner Relationship Specialty Start Date End Date Yadira Asencio PA [address] [place] [id number] PCP - General Physician Classified Advertising Clerk 05/09/23
--- OUTSIDE RECORDS SUMMARY | 2024-08-11 07:03 | XMS_ITS | Clinical Summary ---
Author Organization [facility] Care Team Providers Care Almond Blancher Name Role Phone Unavailable Primary Care Provider Unavailabl e Social History Tobacco Use Types Packs/Day Years Used Date Smoking Tobacco: Never Assessed Comments Unknown Sex and Gender Information Value Date Recorded Sex Assigned at Not on file Legal Sex Female 2:43 PM LACING OPERATOR Gender Identity Not on file Sexual Orientation [...]
--- OUTSIDE RECORDS SUMMARY | 2024-08-11 07:03 | XMS_ITS | Referral Summary ---
Author Organization [facility] Address [address] [place] [address] Care Team Providers Care Tuber Machine Operator Helper Name Role Phone Yadira Asencio Primary Care [...] to a prior imaging study performed at [facility] on 03/31/2023. The breasts are heterogeneously [...] to a prior imaging study performed at [facility] on 03/31/2023. The breasts are heterogeneously [...] Most Recently Relevant to Health Maintenance Insurance [facility] Care Teams Tuber Machine Operator Helper Relationship Specialty Start Date End Date Yadira Asencio PA [address] [place] [address] PCP - General Physician Computer Repair Technician 05/09/23
--- NOTE | 2024-08-11 07:25 | ED_ITS ---
HPI - General Adult General Chief complaint: Chest Pain Stated complaint: chest pain Time Seen by Provider: 08/11/24 06:52 History of Present Illness HPI narrative: 39-year-old female presented to the emergency department for evaluation for epigastric pain that radiates into her back. Patient states pain was ongoing for approximately 3 hours. Patient is unsure if food worsen the pain. Patient denies any prior history of [place]. Patient does have history of gastritis and heartburn. Patient also states that she has a large amount of stress. At time of evaluation patient reports she is currently pain free. Related Data Home Medications ?Medication ?Instructions ?Recorded ?Confirmed ?Last Taken ?Type escitalopram oxalate 5 mg tablet 5 mg PO DAILY 06/25/23 08/11/24 Unknown History famotidine 20 mg tablet mg PO DAILY 08/11/24 08/10/24 History Allergies Allergy/AdvReac Type Severity Reaction Status Date / Time No Known Allergies Allergy Verified 08/11/24 11:25 Review of Systems 2 Review of Systems: All systems reviewed & are unremarkable except as noted in HPI and below PMFSH Past Medical History Medical History Fibroids Uterine, followed by assistant to the president provider Headache Surgical History Surgical History No pertinent past surgical history Family History Family History Other No significant family history Social History Social History Smoking status: Never smoker Alcohol intake: never Substance use: never Living arrangements: with family Occupation/Education: occupation 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 HEAD: normocephalic, atraumatic. EYES: PERRLA/EOMI, conjunctivae clear. NOSE: Normal no drainage EARS:TMS clear with good light reflex. THROAT: Pharynx clear, no exudate. NECK: Supple. No adenopathy, no masses. RESPIRATORY: Airway patent, respirations nonlabored. Clear to auscultation bilaterally, no rales, rhonchi, wheezing. CARDIOVASCULAR: Regular rate and rhythm without murmurs rubs or gallops. ABDOMINAL: Soft, nontender, nondistended, normal bowel sounds MUSCULOSKELETAL: Moves all extremities. Strength/ROM intact, No edema, No calf tenderness. NEURO: Alert. Cranial nerves II through XII intact. Grossly intact SKIN: Warm, dry. Normal Color Course Vital Signs Vital signs: Vital Signs Temperature 97.1 F L 08/11/24 03:02 Pulse Rate 67 08/11/24 03:02 Respiratory Rate 20 08/11/24 03:02 Blood Pressure 144/66 H 08/11/24 03:02 Pulse Oximetry 100 08/11/24 03:02 Temperature 97.7 F 08/11/24 16:40 Pulse Rate 82 08/11/24 18:35 Respiratory Rate 16 08/11/24 18:35 Blood Pressure 132/64 08/11/24 18:35 Pulse Oximetry 97 08/11/24 17:55 Oxygen Delivery Room Air 08/11/24 17:55 Oxygen Flow Rate 8 08/11/24 17:10 Medical Decision Making [facility] Narrative Medical decision making narrative: 39-year-old female presents to the emergency department for evaluation for epigastric pain that radiates into her back. Patient is currently afebrile with no leukocytosis and hemoglobin of 13.3. Patient's INR is 1.0. Patient has no acute abnormalities on her CMP than a glucose of 140 AST of 55 ALT of 48. Patient had negative serial troponins. Lipase was negative. CTA chest abdomen pelvis was ordered to evaluate for possible dissection due to the pain radiating from her chest into her back and mild hypertension on arrival. CT was concerning for acute cholecystitis. Patient was started on IV sepsis emergency department, blood cultures were ordered. Case discussed with surgery and patient will be taken to the OR today. Differential Diagnosis Differential Diagnosis: ACS, colitis, diverticulitis, acute cholecystitis, pancreatitis Vital Signs Vital Signs: Vital Signs Temperature 97.1 F L 08/11/24 03:02 Pulse Rate 67 08/11/24 03:02 Respiratory Rate 20 08/11/24 03:02 Blood Pressure 144/66 H 08/11/24 03:02 Pulse Oximetry 100 08/11/24 03:02 Temperature 97.7 F 08/11/24 16:40 Pulse Rate 82 08/11/24 18:35 Respiratory Rate 16 08/11/24 18:35 Blood Pressure 132/64 08/11/24 18:35 Pulse Oximetry 97 08/11/24 17:55 Oxygen Delivery Room Air 08/11/24 17:55 Oxygen Flow Rate 8 08/11/24 17:10 Lab Data Lab results reviewed: Yes I reviewed the patient's lab results. 08/11/24 02:57 08/11/24 02:57 Labs: Lab Results 08/11/24 08/11/24 08/11/24 Range/Units 02:57 06:11 07:57 WBC 9.3 (4.5-10.0) K/mm3 RBC 4.52 (4.2-5.4) M/mm3 Hgb 13.3 (12.0-15.0) g/dL Hct 39.1 (37.0-47.0) % MCV 86.5 (80-100) fl MCH 29.4 (26-34) pg MCHC 34.0 (32-36) g/dl RDW 12.1 (11.5-14.5) % Plt Count 317 (150-375) k/mm3 MPV 9.8 (7.4-10.4) fl Immature Gran % (Auto) 0.3 (0-0.5) % Neut % (Auto) 77.4 H (45.5-73.1) % Lymph % (Auto) 16.5 L (18.3-44.2) % [place] % (Auto) 4.3 (2.6-8.5) % Eos % (Auto) 1.3 (0-4.4) % Baso % (Auto) 0.2 (0.2-1.2) % Lymph # (Auto) 1.53 (0.9-3.2) K/mm3 [place] # (Auto) 0.4 (0.1-0.6) K/mm3 Eos # (Auto) 0.1 (0-0.3) K/mm3 Baso # (Auto) 0.0 (0.0-0.1) K/mm3 Abs Immat Gran (auto) 0.03 (0.00-0.031) K/mm3 Absolute Neuts (auto) 7.2 H (1.3-6.7) K/mm3 Absolute Nucleated RBC 0.000 (0.0-0.012) K/mm3 Nucleated RBC % 0.0 (0.0-0.2) % PT 13.5 (11.1-14.7) Seconds INR 1.0 APTT 30.1 (22.3-36.8) Seconds Sodium 137 (137-145) mmol/L Potassium 4.2 (3.4-5.0) mmol/L Chloride 101 (98-107) mmol/L Carbon Dioxide 25 (22-30) mmol/L Anion Gap 11 (4-12) mmol/L BUN 13 (7-17) mg/dL Creatinine 0.58 L (0.7-1.0) mg/dL Estim Creat Clear Calc 100 ml/min Estimated GFR > 60 (59 - ) Glucose 140 H (65-110) mg/dL Calcium 9.0 (8.4-10.2) mg/dL Total Bilirubin 0.8 (0.2-1.3) mg/dL AST 55 H (14-36) U/L ALT 48 H (6-35) U/L Alkaline Phosphatase 102 (38-126) U/L Troponin I < 0.012 < 0.012 (0.000-0.034) ng/mL Total Protein 8.0 (6.3-8.2) g/dL Albumin 4.4 (3.5-5.1) g/dL Lipase 97 (23-300) U/L POC Urine HCG, Qual Negative (Negative) Imaging Data Radiologist's impression: Impressions Chest X-Ray 08/11/24 06:43 IMPRESSION: 1: NO ACUTE CARDIOPULMONARY DISEASE. Chest/Abdomen/Pelvis CTA 08/11/24 08:27 IMPRESSION: 1. Acute cholecystitis. Discharge Plan Discharge Clinical Impression: Acute cholecystitis Patient Disposition: Still a Patient Condition: Stable
[2024-08-11] MEDS: PANTOPRAZOLE SODIUM IV 40 MG VIAL IV PUSH (07:51)
[2024-08-11] MEDS: FAMOTIDINE 20 MG/2 ML VIAL IV PUSH (07:51)
[2024-08-11 07:58] LABS: BEDSIDEPREGUCG Negative (Negative)
--- NOTE | 2024-08-11 10:06 | PC.NURSE ---
Per Dr. Castanon, no blood cultures needed
[2024-08-11] MEDS: PIPERACILLN/TAZ 3.375GM/NS50ML 3.375 GM/50 ML BAG IVPB (10:07)
--- NOTE | 2024-08-11 10:25 | P.HP_ITS ---
H&P: HPI History of Present Illness Date/Time: 08/11/24 10:25 Chief Complaint: Acute cholecystitis secondary to cholelithiasis Narrative: Patient is a 39-year-old female who is relatively healthy. She started having severe epigastric abdominal pain which radiated to her mid back region very early this morning. She had no episodes of nausea or vomiting. No diarrhea. She presented to the emergency because this pain. White blood cell count was normal. Liver enzymes show slightly elevated AST and ALT. Total bilirubin was normal. CTA of the chest, abdomen, and pelvis was performed. The showed no evidence of aortic dissection or pulmonary embolus. No acute pulmonary process. In the abdomen a dilated gallbladder with gallstones was noted. There was thickening of the gallbladder wall and edema suggestive of acute cholecystitis. No perforation or free air was seen. No colitis, appendicitis, or gastritis was seen. Patient is currently stable in the emergency room. Her pain has improved. In obtaining further history she has noted worsening symptoms of epigastric pain and discomfort after eating spicy foods and fatty foods. She has never had abdominal surgery in the past. Review of Systems Review of Systems: The remainder of the review of systems to include constitutional, HEENT, cardiovascular, respiratory, GI, , integumentary, musculoskeletal, endocrine, immunologic, hematologic, psychiatric, and neurologic are all negative except for which is mentioned above in the HPI. 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 [facility] Gender identity (if verbalized by the patient): Female Meds Home Medications and Allergies Home Medications ?Medication ?Instructions ?Recorded ?Confirmed ?Type escitalopram oxalate 5 mg tablet 5 mg PO DAILY 06/25/23 03/26/24 History ibuprofen 200 mg capsule 600 mg (3 x 200 mg) PO Q8H PRN 03/26/24 Rx pain #30 caps Allergies Allergy/AdvReac Type Severity Reaction Status Date / Time No Known Allergies Allergy Verified 03/26/24 18:11 Vital Signs Vital Signs - 24 hr 08/11/24 03:02 08/11/24 05:15 08/11/24 05:37 Temperature 36.2 C L Pulse Rate 67 67 Respiratory Rate 20 15 Blood Pressure 144/66 H 130/64 Pulse Oximetry 100 98 99 Oxygen Delivery Room Air 08/11/24 07:49 08/11/24 07:49 08/11/24 10:13 Temperature Pulse Rate 67 67 79 Respiratory Rate 12 18 Blood Pressure 129/76 171/78 H Pulse Oximetry 98 98 Oxygen Delivery Exam Const: General: comfortable and no acute distress HENMT: Ears: TM's normal bilaterally Face/Nose/Sinus: Normal nares present Mouth: Yes moist mucous membranes Eyes: General: appearance normal, both eyes and all related structures Sclera: sclerae normal Pupils: Equal, round and reactive pupils present EOM: EOMs intact bilaterally Neck: Neck: supple and no JVD Resp: Effort & Inspection: normal respiratory effort Auscultation: clear to auscultation bilaterally Cardio: Rate: regular rate Rhythm: regular rhythm GI: Other: Abdomen is soft and mildly obese. Nondistended. Minimal tenderness to palpation epigastric and right upper quadrant regions of the abdomen now. No voluntary guarding. No masses. No ventral hernias. No generalized peritoneal signs. Skin: General skin exam: normal color and no rashes or lesions noted Neuro: General: gait normal Speech: normal speech Motor exam (neuro): 5/5 motor strength present throughout Sensory Exam: normal sensation Extrem: General: normal to inspection Psych: Mental Status: mental status grossly normal Affect: normal affect H&P: Results Labs Labs: Short CBC 08/11/24 Range/Units 02:57 WBC 9.3 (4.5-10.0) K/mm3 Hgb 13.3 (12.0-15.0) g/dL Hct 39.1 (37.0-47.0) % Plt Count 317 (150-375) k/mm3 BMP 08/11/24 02:57 Sodium 137 Potassium 4.2 Chloride 101 Carbon Dioxide 25 BUN 13 Creatinine 0.58 L Glucose 140 H Calcium 9.0 Cardiac Enzymes 08/11/24 08/11/24 Range/Units 02:57 06:11 Troponin I < 0.012 < 0.012 (0.000-0.034) ng/mL Liver Function 08/11/24 Range/Units 02:57 Total Bilirubin 0.8 (0.2-1.3) mg/dL AST 55 H (14-36) U/L ALT 48 H (6-35) U/L Alkaline Phosphatase 102 (38-126) U/L Albumin 4.4 (3.5-5.1) g/dL Imaging CT scan - abdomen: Radiologist's impression: CT Scan Report Signed Patient: Fina Abel : 1985 MR#: [id number] Age: 39 Acct:[id number] Loc: [facility] ADM Date: 08/11/24Attending Dr: Ordering Physician: Madhav Valadez MD Date of Service: 08/11/24 Procedure(s): CTA chest abdomen pelvis Accession Number(s): [id number] cc: Luis M, Yadira Conway PA-C; Madhav Valadez MD~ EXAMINATION: CTA chest abdomen pelvis DATE: 08/11/2024 08:16 INDICATION: Chest pain. TECHNIQUE: Computed tomographic angiography (CTA) of the chest, abdomen, and pelvis was performed with 100 mL Omnipaque-350 intravenous contrast. Automated exposure control and iterative reconstruction technique were employed. The dose- length product was 521.19 mGy-cm. Maximum intensity projection 3D- reconstructions of the aorta and other arteries were constructed by the technologist on a separate workstation. COMPARISON: CT abdomen and pelvis 03/26/2024 FINDINGS: CHEST CTA: There is no pneumonia or pleural effusion. The heart size is normal. No pericardial effusion. The thoracic aorta is normal in caliber. There is a small sliding hiatal hernia. There is mild thoracic spondylosis. ABDOMEN AND PELVIS CTA: The liver and spleen are normal. There are gallstones in the gallbladder, which is distended with wall thickening, consistent with acute cholecystitis. The pancreas, adrenal glands, and kidneys are normal. There are no dilated loops of bowel. The appendix is normal. There are no pathologically enlarged lymph nodes. There is no free intraperitoneal fluid. There is a 2.4 cm dominant follicle in left ovary. Abdominal aorta is normal in caliber. There is no significant stenosis of celiac axis, superior mesenteric artery, the renal arteries, or inferior mesenteric artery. There is mild lumbar spondylosis. IMPRESSION: 1. Acute cholecystitis. Reviewed, dictated and finalized at location A. ORT COORDINATOR Please be advised this is a medical document. It is intended for [id number] communication. It is written in medical language and may contain unfamiliar abbreviations or verbiage. Medical documents are intended to carry relevant information, facts as evident, and the clinical opinion of the practitioner at the time of the encounter. This report may have been done utilizing a voice recognition system. Attempts have been made to correct errors. However, there may be uncorrected grammatical, spelling, and recognition errors present. The file time of this note does not necessarily represent the time of service. Dictated By: Brett Joe MD 08/11/24 0827 Signed By: <Electronically signed by Brett Joe MD in OV> Assessment and Plan Assessment and plan (1) Acute cholecystitis: Code(s): K81.0 - Acute cholecystitis Status: Acute Assessment and Plan: The patient has acute cholecystitis secondary to cholelithiasis. She is fairly early in her time course of developing acute cholecystitis. I have recommended proceeding with a urgent laparoscopic cholecystectomy possible conversion open cholecystectomy. Risks, benefits, indications, and expected outcomes were discussed with the patient and/or family members. Specific risks to include bleeding and possible need for blood transfusion, infection, bile leak, injury to other organs, common bile duct injury, and conversion to open cholecystectomy has been discussed. I have answered all their questions and they agreed to proceed with surgery as outlined above.
--- NOTE | 2024-08-11 10:30 | WPDHPUPDATE1 ---
History and Physical Update Update Date/Time: 08/11/24 10:30 History and Physical has been reviewed, including an updated exam of the patient. There are NO changes in the patient's condition. Risks, benefits, and alternatives have been discussed and questions answered. Patient agrees to proceed with procedure.
[2024-08-11] MEDS: LACTATED RINGERS 1,000 ML 100 ML IV CONT (10:47)
--- OUTSIDE RECORDS SUMMARY | 2024-08-11 11:11 | XMS_ITS | Referral Summary ---
Author Organization [facility] Address [address] [place] [address] Care Team Providers Care Marzipan Molder Name Role Phone Yadira Asencio Primary Care [...] to a prior imaging study performed at [facility] on 03/31/2023. The breasts are heterogeneously dense, [...] to a prior imaging study performed at [facility] on 03/31/2023. The breasts are heterogeneously dense, [...] Most Recently Relevant to Health Maintenance Insurance [facility] Care Teams Marzipan Molder Relationship Specialty Start Date End Date Yadira Asencio PA [address] [place] [address] PCP - General Physician Maintenance And Custodian Supervisor 05/09/23
--- OUTSIDE RECORDS SUMMARY | 2024-08-11 11:11 | XMS_ITS | Clinical Summary ---
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
--- OUTSIDE RECORDS SUMMARY | 2024-08-11 11:11 | XMS_ITS | Clinical Summary ---
Author Organization [facility] Address [address] [place] [address] Care Team Providers Care Mortar Mixer Name Role Phone Yadira Asencio Primary Care [...] to a prior imaging study performed at [facility] on 03/31/2023. The breasts are heterogeneously [...] to a prior imaging study performed at [facility] on 03/31/2023. The breasts are heterogeneously [...] Relevant to Health Maintenance Insurance Care Teams Mortar Mixer Relationship Specialty Start Date End Date Yadira Asencio PA [address] [place] [id number] PCP - General Physician Candy Roller 05/09/23
[2024-08-11] MEDS: LACTATED RINGERS 1,000 ML 30 ML IV CONT ×2 (11:30→16:40)
--- NOTE | 2024-08-11 14:56 | WPDANESEPPF ---
Anes - Initial Pre Proc Eval Procedure: Operation Date: 08/11/24 15:00 Proposed Procedures p Laparoscopic Cholecystectomy, Possible Open - Faustino Castanon MD Date/Time: 08/11/24 14:56 Surgeon: Faustino Castanon MD Pre Op Diagnosis: chest pain Patient Data Age: 39 Gender: F Height: 1.6 m Weight: 68.18 kg Last Vital Signs Temp 36.2 C L 08/11/24 03:02 Pulse 74 08/11/24 10:33 Resp 15 08/11/24 10:33 BP 146/75 H 08/11/24 10:33 Pulse Ox 97 08/11/24 10:33 O2 Del Method Room Air 08/11/24 05:37 Allergies Allergy/AdvReac Type Severity Reaction Status Date / Time No Known Allergies Allergy Verified 08/11/24 11:25 Home Medications ?Medication ?Instructions ?Recorded ?Confirmed ?Type escitalopram oxalate 5 mg tablet 5 mg PO DAILY 06/25/23 08/11/24 History ibuprofen 200 mg capsule 600 mg (3 x 200 mg) PO Q8H PRN 03/26/24 08/11/24 Rx pain #30 caps famotidine 20 mg tablet mg PO DAILY 08/11/24 History Laboratory Tests 08/11/24 08/11/24 08/11/24 02:57 06:11 07:57 WBC 9.3 K/mm3 (4.5-10.0) RBC 4.52 M/mm3 (4.2-5.4) Hgb 13.3 g/dL (12.0-15.0) Hct 39.1 % (37.0-47.0) MCV 86.5 fl (80-100) MCH 29.4 pg (26-34) MCHC 34.0 g/dl (32-36) RDW 12.1 % (11.5-14.5) Plt Count 317 k/mm3 (150-375) MPV 9.8 fl (7.4-10.4) Immature Gran % (Auto) 0.3 % (0-0.5) Neut % (Auto) 77.4 H % (45.5-73.1) Lymph % (Auto) 16.5 L % (18.3-44.2) Howell % (Auto) 4.3 % (2.6-8.5) Eos % (Auto) 1.3 % (0-4.4) Baso % (Auto) 0.2 % (0.2-1.2) Lymph # (Auto) 1.53 K/mm3 (0.9-3.2) Howell # (Auto) 0.4 K/mm3 (0.1-0.6) Eos # (Auto) 0.1 K/mm3 (0-0.3) Baso # (Auto) 0.0 K/mm3 (0.0-0.1) Abs Immat Gran (auto) 0.03 K/mm3 (0.00-0.031) Absolute Neuts (auto) 7.2 H K/mm3 (1.3-6.7) Absolute Nucleated RBC 0.000 K/mm3 (0.0-0.012) Nucleated RBC % 0.0 % (0.0-0.2) PT 13.5 Seconds (11.1-14.7) INR 1.0 APTT 30.1 Seconds (22.3-36.8) Sodium 137 mmol/L (137-145) Potassium 4.2 mmol/L (3.4-5.0) Chloride 101 mmol/L (98-107) Carbon Dioxide 25 mmol/L (22-30) Anion Gap 11 mmol/L (4-12) BUN 13 mg/dL (7-17) Creatinine 0.58 L mg/dL (0.7-1.0) Estim Creat Clear Calc 100 ml/min Estimated GFR > 60 (59 - ) Glucose 140 H mg/dL (65-110) Calcium 9.0 mg/dL (8.4-10.2) Total Bilirubin 0.8 mg/dL (0.2-1.3) AST 55 H U/L (14-36) ALT 48 H U/L (6-35) Alkaline Phosphatase 102 U/L (38-126) Troponin I < 0.012 ng/mL < 0.012 ng/mL (0.000-0.034) (0.000-0.034) Total Protein 8.0 g/dL (6.3-8.2) Albumin 4.4 g/dL (3.5-5.1) Lipase 97 U/L (23-300) POC Urine HCG, Qual Negative (Negative) Patient hx anesthesia problems: none Family hx anesthesia problems: none Results Review: All pre-operative results and documents have been reviewed as part of the pre-operative evaluation. 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 Informed Consent: The patient's anesthetic plan and its attendant risks and benefits were discussed with the patient/family/POA. Questions were solicited and answers provided to the satisfaction of the patient/family/POA.
[2024-08-11] MEDS: BUPivacaine HCL 0.5% 10 ML AMP 20 ML INFILTRATE (15:55)
[2024-08-11] MEDS: LIDO 1%/EPINEPHRINE 1:100,000 50 ML VIAL 20 ML INFILTRATE (15:55)
[2024-08-11] MEDS: KETOROLAC 15 MG/ML VIAL (*BKC) IV PUSH (16:25)
--- NOTE | 2024-08-11 16:45 | W.PM.PROC2 ---
Procedure Note - Detailed Date of Procedure 08/11/24 Pre-op Diagnosis Acute cholecystitis secondary to cholelithiasis Post-op Diagnosis Same Procedure Performed Laparoscopic cholecystectomy Surgeon Faustino Castanon MD Title Searcher AIME [facility] Anest[facility] General Indications Patient is a 39-year-old female presented to the emergency room this morning with severe epigastric abdominal pain. Imaging showed acute cholecystitis secondary to cholelithiasis. She presents now for an urgent laparoscopic cholecystectomy. Findings The gallbladder was distended and acutely inflamed with mild erythema and edema of the gallbladder wall. There is no gangrene of the gallbladder and no perforation. Description of Procedure After informed consent was obtained patient was brought to the operating room she was placed supine position and general endotracheal anesthesia was administered. The abdomen was then prepped and draped usual sterile fashion. A time-out was then performed correctly identifying the patient as well as the procedure to be performed. She was already on scheduled IV antibiotics. The then the abdomen left upper quadrant utilizing a 5mm Optiview port. Once inside the abdomen insufflated to adequate pneumoperitoneum of 15mmHg of CO2. Visualization of the area around the umbilicus revealed no adhesions I placed a 5mm periumbilical trocar port. The laparoscopic was then switched over to the periumbilical trocar port and then looking to the upper portions of the abdomen I could see the gallbladder which was distended and hyperemic and the wall was edematous. There is no gangrene of the gallbladder wall and no perforation I then placed a 10mm epigastric trocar port and 2 more 5mm right subcostal 5mm trocar ports all under direct visualization. The gallbladder was then held a laparoscopic grasper at the dome and elevated over the right half of the returns right shoulder. Single omental adhesion to the gallbladder wall was easily stripped down bluntly with a grasper. A 2nd laparoscopic grasper was then used to hold the gallbladder at the infundibulum and then I proceeded to strip down the visceral peritoneum off of the infundibular gallbladder to identify the cystic duct. The cystic duct was then dissected out circumferentially. Cystic artery was identified and dissected out circumferentially as well. It had at both an anterior and posterior branch. The posterior wall of the gallbladder at the infundibulum was then dissected free of the liver until the critical view was obtained. I then placed 2 clips proximally cystic duct and 2 clips high on infundibular gallbladder. The cystic duct was then divided with Endo Phuong. In a similar fashion cystic artery anterior and posterior branches were clipped and divided as well. The gallbladder was then resected off the liver utilized electrocautery without spilling any bile or gallstones. Once the gallbladder was free from the liver it was placed into an Endo-Catch bag and brought out through the epigastric port site. The gallbladder gallstones within were sent to pathology for examination. I then irrigated out the right upper quadrant the abdomen the gallbladder fossa with sterile saline solution. Small amount of oozing of blood on the gallbladder bed was then treated electrocautery to achieve hemostasis. There was no evidence of bile leak. I then aspirated the fluid from the right upper quadrant the abdomen from the pelvis. I then removed all the trocar ports under direct visualization all port sites appeared to be hemostatic. The abdomen was then allowed to decompress. I then irrigated out the port sites sterile saline solution hemostasis was good. The epigastric 10mm trocar port fascial defect was then closed utilizing 0 Vicryl suture at the fascial level. The skin edges in all the port sites were then approximated utilizing a running subcuticular 4 Monocryl suture. The incisions were then cleaned the skin glue was applied. The patient tolerated the procedure well no complications. All sponges, needles, and instrument counts were correct at the end procedure. EBL was _20__cc. The patient was awakened and taken to recovery in stable and satisfactory condition. Implants None Estimated Blood Loss 20 Drains No Packing No Pathology Yes (Gallbladder and gallstones to pathology) Complications No immediate complications Condition Stable Disposition PACU [facility] Billing Surgery - Charge Forward: Surgery Billing
[2024-08-11] MEDS: oxyCODONE HCL (*CRX) 5 MG TAB IR PO (18:27)
== END 2024-08-11 18:50 | disposition home or self-care (01) ==
LOC: ANHED 10:05 → ANHSURGERY 10:17
PROVIDERS: Student in an Organized Health Care Education/Training Program; Emergency Provider Emergency Medicine; PCP Physician Assistant; Visit Provider Surgery
PROC: 0FT44ZZ Resection of Gallbladder, Percutaneous Endoscopic Approach (ICD-10-PCS; CPT 47562; principal; 2024-08-11 15:00)
DX: K80.00 Calculus of gallbladder with acute cholecystitis without obstruction (principal); Z79.1 Long term (current) use of non-steroidal anti-inflammatories (NSAID)
CPT/HCPCS: 47562; 36415; 71046; 71275; 74174; 80053; 81025; 83690; 84484; 85025; 85610; 85730; 88304; 93005; 96365; 96375; 99285; A9270; J1100; J1885; J2004; J2250; J2405; J2470; J2543; J2704; J3010; J7120; Q9967

== ENCOUNTER 2024-08-26 08:25 | Emergency (ER) | payer OTHER, SELFPAY ==
[2024-08-26] VITALS (15 sets, daily range): BP systolic 118–128; BP diastolic 63–67; PULSE 67–90; RESP 14–20; TEMP 36.6; O2SAT 98–100
--- NOTE | ~2024-08-26 | XR_ITS ---
EXAMINATION: XR chest 2V DATE: 08/26/2024 09:17 INDICATION: Chest pain TECHNIQUE: PA and lateral views of the chest were obtained. COMPARISON: Chest radiograph and CT dated 08/11/2024 FINDINGS: The lungs remain clear with no focal airspace opacities, pulmonary edema, pleural effusion or pneumot horax. The cardiomediastinal silhouette is normal. Cholecystectomy clips in right upper quadrant. Bon es and soft tissues are unremarkable. IMPRESSION: 1. No acute cardiopulmonary disease. Reviewed, dictated and finalized at location A. IER OR CHECKER STOCK CLERK
--- OUTSIDE RECORDS SUMMARY | 2024-08-26 08:30 | XMS_ITS | Referral Summary ---
Author Organization [facility] Address [address] [place] [address] Care Team Providers Care Transmission Systems Operator Name Role Phone Yadira Asencio Primary Care [...] to a prior imaging study performed at [facility] on 03/31/2023. The breasts are heterogeneously dense, which may obscure small masses. There is no suspicious abnormality in either breast. Impression: There is no mammographic evidence of malignancy. Annual screening mammography is recommended. If supplemental screening is desired, breast MRI would be recommended in this patient with heterogeneously dense breasts. OVERALL FINAL ASSESSMENT: BI-RADS CATEGORY 1: Negative. Procedure Note Saskia Godinez MD - 04/05/2024 Mammogram Technique: Bilateral Digital Breast Tomosynthesis, Bilateral C-view 2D Screening mammogram. Views obtained: bilateral craniocaudal and bilateral mediolateral oblique. Computer Aided Detection was performed. Mammogram Findings: The present examination has been compared to a prior imaging study performed at [facility] on 03/31/2023. The breasts are heterogeneously dense, [...] Most Recently Relevant to Health Maintenance Insurance [facility] Care Teams Transmission Systems Operator Relationship Specialty Start Date End Date Yadira Asencio PA [address] [place] [id number] PCP - General Physician Scenic Designer 05/09/23
--- OUTSIDE RECORDS SUMMARY | 2024-08-26 08:30 | XMS_ITS | Clinical Summary ---
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
--- OUTSIDE RECORDS SUMMARY | 2024-08-26 08:30 | XMS_ITS | Clinical Summary ---
Author Organization [facility] Address [address] [place] [address] Care Team Providers Care Premises Technician Name Role Phone Yadira Asencio Primary Care [...] to a prior imaging study performed at [facility] on 03/31/2023. The breasts are [...] to a prior imaging study performed at [facility] on 03/31/2023. The breasts are [...] Relevant to Health Maintenance Insurance Care Teams Premises Technician Relationship Specialty Start Date End Date Yadira Asencio PA [address] [place] [address] PCP - General Physician Fox Farmer 05/09/23
--- NOTE | 2024-08-26 08:42 | ECG_ITS ---
Test Date: 2024-08-26 08:45:03 Measurements Intervals [place] Rate: 72 P: 28 CA: 167 QRS: -23 QRSD: 81 T: 10 QT: 376 QTc: 413 Interpretive Statements SINUS RHYTHM DELAYED PRECORDIAL R/S TRANSITION BASELINE ARTIFACT- I, II, III, AVR, AVL, AVF BORDERLINE ECG Compared to ECG 08/11/2024 02:50:48 HEART RATE HAS INCREASED Electronically Signed On 08-26-2024 10:10:28 CHEMICAL RECOVERY OPERATOR by Abelino Durand D.O.
--- OUTSIDE RECORDS SUMMARY | 2024-08-26 08:56 | XMS_ITS | Clinical Summary ---
Author Organization [facility] Address [address] [place] [address] Care Team Providers Care Oliver Filter Operator Name Role Phone Yadira Asencio Primary [...] to a prior imaging study performed at [facility] on 03/31/2023. The breasts are heterogeneously [...] to a prior imaging study performed at [facility] on 03/31/2023. The breasts are heterogeneously [...] Relevant to Health Maintenance Insurance Care Teams Oliver Filter Operator Relationship Specialty Start Date End Date Yadira Asencio PA [address] [place] [address] PCP - General Physician Control Center Operator 05/09/23
--- OUTSIDE RECORDS SUMMARY | 2024-08-26 08:56 | XMS_ITS | Referral Summary ---
Author Organization [facility] Address [address] [place] [address] Care Team Providers Care Fill Technician Name Role Phone Yadira Asencio Primary [...] a prior imaging study performed at [facility] on 03/31/2023. The breasts are heterogeneously dense, [...] a prior imaging study performed at [facility] on 03/31/2023. The breasts are heterogeneously dense, [...] Most Recently Relevant to Health Maintenance Insurance [facility] Care Teams Fill Technician Relationship Specialty Start Date End Date Yadira Asencio PA [address] [place] [id number] PCP - General Physician Dental Surgery Doctor 05/09/23
--- OUTSIDE RECORDS SUMMARY | 2024-08-26 08:56 | XMS_ITS | Clinical Summary ---
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
--- NOTE | 2024-08-26 09:06 | ED.GENADULT ---
HPI - General Adult General Chief complaint: Chest Pain Stated complaint: NECK/SHOULDER/UPPER CHEST PAIN Time Seen by Provider: 08/26/24 08:46 History of Present Illness HPI narrative: Through the video intrepreter : Fina Abraham is a 39-year-old female who presents today with complaints of having left-sided chest pain that started 4 days ago. She states that it was off and on and no has been constant since last night. She states that she is having pain to her left chest left arm neck she denies shortness of breath reports movement and not make her pain any worse. She denies any urinary symptoms fevers or chills. Related Data Allergies Allergy/AdvReac Type Severity Reaction Status Date / Time No Known Allergies Allergy Verified 08/26/24 08:48 Review of Systems Review of Systems: All systems reviewed & are unremarkable except as noted in HPI and below PMFSH Past Medical History Medical History Fibroids Uterine, followed by building maintenance technician provider Headache Surgical History Surgical History Hx laparoscopic cholecystectomy 08/11/[address] Castanon No pertinent past surgical history Family History Family History Other No significant family history Social History Social History Smoking status: Never smoker Alcohol intake: never Substance use: never Do You Feel Safe in your Home?: Yes Lack of Transportation: No Lack of Food: Never True Current Housing: I Have Housing Concerned About Future Housing: No Difficulty Paying Gas/Electric Bills: No Difficulty Paying for Meds: No Currently Unemployed: No Education: High School Diploma/GED Difficulty w/ Childcare or Family Care: No Living arrangements: with family Occupation/Education: occupation 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 HEAD: Normocephalic, atraumatic. EYES: PERRLA and EOMI. ENT: Nares clear, no rhinorrhea or epistaxis. Mucous membranes moist. Oropharynx without tonsillar hypertrophy exudate or other lesions. NECK: Supple. No adenopathy or masses. No carotid bruits or JVD CHEST: Clear to auscultation. No respiratory distress. No wheezes rales or rhonchi HEART: Regular rate and rhythm. No murmur heard. Normal peripheral pulses. ABDOMEN: Soft, nontender, nondistended, normal active bowel sounds. EXTREMITIES: Normal range of motion. No edema. SKIN: Warm, dry, no rash. NEURO: No focal deficits. Alert and oriented x3. PSYCH: Normal mood and affect. Course Vital Signs Vital signs: Vital Signs Temperature 36.6 C 08/26/24 08:34 Pulse Rate 71 08/26/24 08:34 Respiratory Rate 16 08/26/24 08:34 Blood Pressure 128/67 08/26/24 08:34 Pulse Oximetry 100 08/26/24 08:34 Oxygen Delivery Room Air 08/26/24 08:34 Temperature 36.6 C 08/26/24 08:34 Pulse Rate 71 08/26/24 10:56 Respiratory Rate 18 08/26/24 10:51 Blood Pressure 118/64 08/26/24 10:51 Pulse Oximetry 99 08/26/24 10:51 Oxygen Delivery Room Air 08/26/24 08:34 Medical Decision Making [facility] Narrative Medical decision making narrative: 39-year-old female who presents today with complaints having left-sided chest pain left shoulder pain pain and 4 days. Reviewing her records I see that she did a laparoscopic cholecystectomy done 2 weeks. She denies nausea, diarrhea denies abdominal pain. She states that she did take some medication for her pain this seemed to help because she slept okay afterwards. No cardiac history. Denies shortness of breath. Plan to check cardiac workup consider been changed and treat her with aspirin and ketorolac in the meantime. CBC-no leukocytosis hemodynamically stable platelet count 391 CMP-healthy male in a gap 13 creatinine 0.66 Troponin 1-negative Troponin 2-negative UA-trace ketones, 2+ blood, 2+ leukocytes, white blood cells 11-20 Urine preg-negative Chest XR-1. No acute cardiopulmonary disease. EKG-normal sinus rhythm rate 75 Heart score 0 Patient re-evaluated through the diplomatic interpreter and she states that she no longer having pain, she feels much better and reports feeling ready to go home - she is updated on her labs/ imaging and given strict return precautions. She denies any questions and denies needing anything further. Medical Records Medical records reviewed: Yes I reviewed the external patient's medical records. Vital Signs Vital Signs: Vital Signs Temperature 36.6 C 08/26/24 08:34 Pulse Rate 71 08/26/24 08:34 Respiratory Rate 16 08/26/24 08:34 Blood Pressure 128/67 08/26/24 08:34 Pulse Oximetry 100 08/26/24 08:34 Oxygen Delivery Room Air 08/26/24 08:34 Temperature 36.6 C 08/26/24 08:34 Pulse Rate 71 08/26/24 10:56 Respiratory Rate 18 08/26/24 10:51 Blood Pressure 118/64 08/26/24 10:51 Pulse Oximetry 99 08/26/24 10:51 Oxygen Delivery Room Air 08/26/24 08:34 Vitals reviewed Lab Data Lab results reviewed: Yes I reviewed the patient's lab results. 08/26/24 09:28 08/26/24 09:28 Labs: Lab Results 08/26/24 08/26/24 08/26/24 Range/Units 09:28 09:40 10:00 WBC 6.3 (4.5-10.0) K/mm3 RBC 5.00 (4.2-5.4) M/mm3 Hgb 14.6 (12.0-15.0) g/dL Hct 43.3 (37.0-47.0) % MCV 86.6 (80-100) fl MCH 29.2 (26-34) pg MCHC 33.7 (32-36) g/dl RDW 12.1 (11.5-14.5) % Plt Count 391 H (150-375) k/mm3 MPV 9.6 (7.4-10.4) fl Immature Gran % (Auto) 0.3 (0-0.5) % Neut % (Auto) 59.7 (45.5-73.1) % Lymph % (Auto) 27.9 (18.3-44.2) % [place] % (Auto) 7.9 (2.6-8.5) % Eos % (Auto) 3.6 (0-4.4) % Baso % (Auto) 0.6 (0.2-1.2) % Lymph # (Auto) 1.77 (0.9-3.2) K/mm3 [place] # (Auto) 0.5 (0.1-0.6) K/mm3 Eos # (Auto) 0.2 (0-0.3) K/mm3 Baso # (Auto) 0.0 (0.0-0.1) K/mm3 Abs Immat Gran (auto) 0.02 (0.00-0.031) K/mm3 Absolute Neuts (auto) 3.8 (1.3-6.7) K/mm3 Absolute Nucleated RBC 0.000 (0.0-0.012) K/mm3 Nucleated RBC % 0.0 (0.0-0.2) % Sodium 141 (137-145) mmol/L Potassium 3.8 (3.4-5.0) mmol/L Chloride 105 (98-107) mmol/L Carbon Dioxide 23 (22-30) mmol/L Anion Gap 13 H (4-12) mmol/L BUN 11 (7-17) mg/dL Creatinine 0.66 L (0.7-1.0) mg/dL Estim Creat Clear Calc 90 ml/min Estimated GFR > 60 (59 - ) Glucose 101 (65-110) mg/dL Calcium 9.3 (8.4-10.2) mg/dL Total Bilirubin 1.2 (0.2-1.3) mg/dL AST 30 (14-36) U/L ALT 35 (6-35) U/L Alkaline Phosphatase 117 (38-126) U/L Troponin I < 0.012 (0.000-0.034) ng/mL Total Protein 8.0 (6.3-8.2) g/dL Albumin 4.7 (3.5-5.1) g/dL Urine Color Yellow (Yellow) Urine Appearance Clear (Clear) Urine pH 5.5 (5.0-9.0) Ur Specific [place] 1.019 (1.001-1.035) Urine Protein Negative (Negative) mg/dL Urine Glucose (UA) Negative (Negative) mg/dL Urine Ketones Trace H (Negative) mg/dL Ur Blood (Man) 2+ H (Negative) Urine Nitrate Negative (Negative) Urine Bilirubin Negative (Negative) Urine Urobilinogen 0.2 (<2.0) mg/dL Leukocyte Esterase Rfl 2+ H (Negative) GAUDENCIO/UL Urine RBC 11-20 H (0-2) /hpf Urine WBC 11-20 H (0-3) /hpf Ur Squamous Epith Cells Few (Few) /hpf Urine Bacteria None seen /hpf Urine Casts 0-2 POC Urine HCG, Qual Negative (Negative) 08/26/24 Range/Units 11:56 WBC (4.5-10.0) K/mm3 RBC (4.2-5.4) M/mm3 Hgb (12.0-15.0) g/dL Hct (37.0-47.0) % MCV (80-100) fl MCH (26-34) pg MCHC (32-36) g/dl RDW (11.5-14.5) % Plt Count (150-375) k/mm3 MPV (7.4-10.4) fl Immature Gran % (Auto) (0-0.5) % Neut % (Auto) (45.5-73.1) % Lymph % (Auto) (18.3-44.2) % [place] % (Auto) (2.6-8.5) % Eos % (Auto) (0-4.4) % Baso % (Auto) (0.2-1.2) % Lymph # (Auto) (0.9-3.2) K/mm3 [place] # (Auto) (0.1-0.6) K/mm3 Eos # (Auto) (0-0.3) K/mm3 Baso # (Auto) (0.0-0.1) K/mm3 Abs Immat Gran (auto) (0.00-0.031) K/mm3 Absolute Neuts (auto) (1.3-6.7) K/mm3 Absolute Nucleated RBC (0.0-0.012) K/mm3 Nucleated RBC % (0.0-0.2) % Sodium (137-145) mmol/L Potassium (3.4-5.0) mmol/L Chloride (98-107) mmol/L Carbon Dioxide (22-30) mmol/L Anion Gap (4-12) mmol/L BUN (7-17) mg/dL Creatinine (0.7-1.0) mg/dL Estim Creat Clear Calc ml/min Estimated GFR (59 - ) Glucose (65-110) mg/dL Calcium (8.4-10.2) mg/dL Total Bilirubin (0.2-1.3) mg/dL AST (14-36) U/L ALT (6-35) U/L Alkaline Phosphatase (38-126) U/L Troponin I < 0.012 (0.000-0.034) ng/mL Total Protein (6.3-8.2) g/dL Albumin (3.5-5.1) g/dL Urine Color (Yellow) Urine Appearance (Clear) Urine pH (5.0-9.0) Ur Specific [place] (1.001-1.035) Urine Protein (Negative) mg/dL Urine Glucose (UA) (Negative) mg/dL Urine Ketones (Negative) mg/dL Ur Blood (Man) (Negative) Urine Nitrate (Negative) Urine Bilirubin (Negative) Urine Urobilinogen (<2.0) mg/dL Leukocyte Esterase Rfl (Negative) GAUDENCIO/UL Urine RBC (0-2) /hpf Urine WBC (0-3) /hpf Ur Squamous Epith Cells (Few) /hpf Urine Bacteria /hpf Urine Casts POC Urine HCG, Qual (Negative) Imaging Data Radiologist's impression: Impressions Chest X-Ray 08/26/24 09:17 IMPRESSION: 1. No acute cardiopulmonary disease. ECG Data EKG #1: ECG completion date: 08/26/24 ECG completion time: 08:45 Prior ECG tracings: available for review Interpretation: Rate 72 FL 167 QRSd 81 QT 376 QTc 413 --Morgan-- P 28 QRS -23 T 10 SINUS RHYTHM BORDERLINE LEFT AXIS DEVIATION [QRS AXIS < -20] Compared to ECG 08/11/2024 02:50:48 Sinus bradycardia no longer present Myocardial infarct finding no longer present Discharge Plan Discharge Clinical Impression: Atypical chest pain Patient Disposition: Home, Self-Care Condition: Stable Instructions: Antibiotic Form Additional Instructions: Continue to take the Naproxen twice daily for pain Follow up with your PCP IN 1 week IF you develop any worsening symptoms or concerns return to the ER. Patient Language: Yoruba Prescriptions: New naproxen [Naprosyn] 500 mg tablet 500 mg PO BID PRN (Reason: pain) Qty: 28 0RF Follow-up/Referrals: Luis M,VELMA Nava [Primary Care Provider] - 1 Week Time of Disposition: 12:51 Quality HEART score for chest pain patients History: slightly suspicious ECG: normal Age: < or = to 45 years Risk factors: no risk factors known Troponin: < or = to 1x normal limit Heart score: 0
[2024-08-26 09:37] LABS: Basophils Percent Auto 0.6 % (0.2-1.2); Eosinophils Absolute Auto 0.2 K/mm3 (0-0.3); Eosinophils Percent Auto 3.6 % (0-4.4); Hematocrit 43.3 % (37.0-47.0); Hemoglobin 14.6 g/dL (12.0-15.0); Immature Granulocyte Absolute 0.02 K/mm3 (0.00-0.031); Immature Granulocyte Percent A 0.3 % (0-0.5); Lymphocytes Absolute Auto 1.77 K/mm3 (0.9-3.2); Lymphocytes Percent Auto 27.9 % (18.3-44.2); Mean Corpuscular HGB Conc 33.7 g/dl (32-36); Mean Corpuscular Hemoglobin 29.2 pg (26-34); Mean Corpuscular Volume 86.6 fl (80-100); Mean Platelet Volume 9.6 fl (7.4-10.4); Monocytes Absolute Auto 0.5 K/mm3 (0.1-0.6); Monocytes Percent Auto 7.9 % (2.6-8.5); Neutrophils Absolute Auto 3.8 K/mm3 (1.3-6.7); Neutrophils Percent Auto 59.7 % (45.5-73.1); Platelet Count Result 391 k/mm3 (150-375); Red Cell Distribution Width 12.1 % (11.5-14.5); White Blood Count 6.3 K/mm3 (4.5-10.0)
[2024-08-26 09:51] LABS: Alanine Aminotransferase 35 U/L (6-35); Albumin Level 4.7 g/dL (3.5-5.1); Alkaline Phosphatase 117 U/L (38-126); Anion Gap 13 mmol/L (4-12); Aspartate Amino Transferase 30 U/L (14-36); Bilirubin,Total 1.2 mg/dL (0.2-1.3); Blood Urea Nitrogen 11 mg/dL (7-17); Calcium 9.3 mg/dL (8.4-10.2); Carbon Dioxide 23 mmol/L (22-30); Chloride 105 mmol/L (98-107); Estimated CRCL calculation 90 ml/min; Estimated Glomerular Filt Rate > 60; Glucose 101 mg/dL (65-110); Potassium 3.8 mmol/L (3.4-5.0); Sodium 141 mmol/L (137-145)
[2024-08-26 09:52] LABS: Add Urine Microscopic? YES; Appearance Urine Clear (Clear); Bacteria Urine None Seen /hpf; Bilirubin Urine Negative (Negative); Blood Urine 2+ (Negative); Color Urine Yellow (Yellow); Glucose Urine UA Negative (Negative); Ketones Urine Trace mg/dL (Negative); Leukocyte Esterase Ur 2+ LEU/UL (Negative); Nitrate Urine Negative (Negative); Non Pathogenic Casts 0-2; Protein Urine Negative (Negative); Specific Grav Ur 1.019 (1.001-1.035); Squamous Epithelial Cell Urine Few /hpf (Few); Urobilinogen Urine 0.2 mg/dL (<2.0); pH Urine 5.5 (5.0-9.0)
[2024-08-26 10:02] LABS: Troponin I < 0.012 ng/mL (0.000-0.034)
[2024-08-26 10:03] LABS: BEDSIDEPREGUCG Negative (Negative)
[2024-08-26] MEDS: ASPIRIN 81 MG CHEWABLE TABLET 324 MG PO (10:22)
[2024-08-26] MEDS: KETOROLAC 30 MG/ML VIAL (*BKC) IV PUSH (10:23)
[2024-08-26 12:23] LABS: Troponin I < 0.012 ng/mL (0.000-0.034)
== END 2024-08-26 13:27 | disposition home or self-care (01) ==
PROVIDERS: Emergency Medicine; Emergency Provider Nurse Practitioner Family; PCP Physician Assistant
DX: R07.89 Other chest pain (principal); R82.998 Other abnormal findings in urine; Z90.49 Acquired absence of other specified parts of digestive tract; R94.31 Abnormal electrocardiogram [ECG] [EKG]
CPT/HCPCS: 36415; 71046; 80053; 81001; 81025; 84484; 85025; 87086; 93005; 96374; 99284; A9270; J1885

== ENCOUNTER 2025-03-04 16:52 | Emergency (ER) | payer OTHER, SELFPAY ==
[2025-03-04 17:00] VITALS: BP 154/80; PULSE 95; RESP 20; TEMP 36.9; O2SAT 99
--- NOTE | 2025-03-04 17:18 | ED.GENADULT ---
HPI - General Adult General Chief complaint: Unspecified Stated complaint: feels hot Source: patient, RN notes reviewed and old records reviewed Mode of arrival: ambulatory Limitations: no limitations History of Present Illness HPI narrative: 39-year-old female presents to the [facility] with complaints of feeling hot in different areas over the last week. Denies any illnesses. Denies any chest pain, shortness of breath. Patient has a history of anxiety, panic attacks. Had a panic attack this morning and the feeling of hot became worse. Onset (ago): week(s) (1) Treatments prior to arrival: none Related Data Home Medications ?Medication ?Instructions ?Recorded ?Confirmed ?Last Taken ?Type No Home Medications 03/04/25 03/04/25 Unknown History Allergies Allergy/AdvReac Type Severity Reaction Status Date / Time No Known Allergies Allergy Verified 03/04/25 17:27 Review of Systems Review of Systems: All systems reviewed & are unremarkable except as noted in HPI and below Constitutional: Constitutional: Reports as per HPI ENT: Reports system reviewed and no additional complaints, except as documented Cardiovascular: Cardiovascular: Reports no additional cardiovascular complaints, Denies chest pain and Denies dyspnea Respiratory: Respiratory: Reports no additional respiratory complaints, Denies chest congestion, Denies cough and Denies dyspnea Musculoskeletal: Musculoskeletal: Reports no additional musculoskeletal complaints Integumentary/Breasts: Skin/Breast: Reports system reviewed and no additional complaints, except as docu Psychiatric: Psychiatric: Reports as per HPI PMFSH Past Medical History Medical History Fibroids Uterine, followed by cardiovascular surgical tech provider Headache Surgical History Surgical History Hx laparoscopic cholecystectomy 08/11/[address] Castanon No pertinent past surgical history Family History Family History Other No significant family history Social History Social History Smoking status: Never smoker Alcohol intake: never Substance use: never Do You Feel Safe in your Home?: Yes Lack of Transportation: No Lack of Food: Never True Current Housing: I Have Housing Concerned About Future Housing: No Difficulty Paying Gas/Electric Bills: No Difficulty Paying for Meds: No Currently Unemployed: No Education: High School Diploma/GED Difficulty w/ Childcare or Family Care: No Living arrangements: with family Occupation/Education: occupation 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 There is no relevant family history pertinent to the patient complaint. Exam Const: General: cooperative, healthy appearing, comfortable, no acute distress, well developed, alert and well nourished Nutritional Appearance: well nourished Orientation/consciousness: patient oriented x3 Limitations: no limitations HENMT: Head: normal to inspection Ears: hearing grossly normal bilaterally, external ears normal, TM's normal bilaterally, EAC's normal, mastoids normal and no periauricular adenopathy Mouth: Yes Normal oral and palatal mucosa present, Yes lip normal, Yes tongue normal and Yes moist mucous membranes Throat: posterior oropharynx normal, uvula midline and no uvular edema Eyes: General: appearance normal, both eyes and all related structures Alignment and Position: alignment normal Neck: Neck: normal visual inspection, full ROM, no lymphadenopathy and no meningeal signs Chest: Chest palpation & inspection: normal inspection of the chest Resp: Effort & Inspection: normal respiratory effort and able to speak in complete sentences Auscultation: clear to auscultation bilaterally, no crackles, no rales, no rhonchi and no wheezes Cardio: Rate: regular rate Skin: General skin exam: normal color and no rashes or lesions noted Neuro: General: patient oriented x3, gait normal, moves all extremities and no meningeal signs Cognition (Neuro): normal cognition Speech: normal speech Gait exam (Neuro): Normal gait present Extrem: General: normal to inspection, full ROM, capillary refill normal and normal gait Psych: Appearance: grossly normal and well kempt Mental Status: mental status grossly normal Speech and movement: Normal speech and movement present and Clear speech present Affect: normal affect Attitude: cooperative Course Course Level of Care: Express Care Visit Vital Signs Vital signs: Vital Signs Temperature 98.5 F 03/04/25 17:00 Pulse Rate 95 03/04/25 17:00 Respiratory Rate 20 03/04/25 17:00 Blood Pressure 154/80 H 03/04/25 17:00 Pulse Oximetry 99 03/04/25 17:00 Oxygen Delivery Room Air 03/04/25 17:00 Temperature 98.5 F 03/04/25 17:00 Pulse Rate 95 03/04/25 17:00 Respiratory Rate 20 03/04/25 17:00 Blood Pressure 154/80 H 03/04/25 17:00 Pulse Oximetry 99 03/04/25 17:00 Oxygen Delivery Room Air 03/04/25 17:00 Reviewed Medical Decision Making MDM Narrative Medical decision making narrative: Patient sitting comfortably in exam room. Nontoxic, vitals stable. Patient in no acute distress Patient presents with sounds like hot flashes that got worse after panic attack today No acute findings noted on exam Discussed with patient follow-up with primary care provider, has an appointment coming up with cardiovascular surgical tech providers states Patient appropriate for outpatient treatment with close follow-up Discharge instructions reviewed with patient, as well as provided in writing per nursing staff. The instructions also include specific and strict return/GO TO THE ER as well as f/u information. All questions have been answered, and the patient deny any further questions with discharge and discharge plan. Some parts of this dictation were generated by voice recognition software and may contain typographical and/or grammatical inaccuracies. Differential Diagnosis Differential Diagnosis: Hot flashes, thyroid disorder, electrolyte disorder, anxiety, panic attacks Medical Records Medical records reviewed: Yes I reviewed the external patient's medical records. Vital Signs Vital Signs: Vital Signs Temperature 98.5 F 03/04/25 17:00 Pulse Rate 95 03/04/25 17:00 Respiratory Rate 20 03/04/25 17:00 Blood Pressure 154/80 H 03/04/25 17:00 Pulse Oximetry 99 03/04/25 17:00 Oxygen Delivery Room Air 03/04/25 17:00 Temperature 98.5 F 03/04/25 17:00 Pulse Rate 95 03/04/25 17:00 Respiratory Rate 20 03/04/25 17:00 Blood Pressure 154/80 H 03/04/25 17:00 Pulse Oximetry 99 03/04/25 17:00 Oxygen Delivery Room Air 03/04/25 17:00 Reviewed Lab Data Lab results reviewed: Yes I reviewed the patient's lab results. Labs: Reviewed Critical Care Time Critical Care Time Critical Care Time: No Discharge Plan Discharge Clinical Impression: History of panic attacks, Hot flashes Patient Disposition: Home Condition: Stable Instructions: Antibiotic Form, Anxiety (ED), Panic Attack (ED) Additional Instructions: Follow-up with primary care provider Follow-up with cardiovascular surgical tech provider as scheduled For new or worsening symptoms go directly to the emergency room Patient Language: Swedish Prescriptions: No Action No Home Medications Follow-up/Referrals: PHYSICIAN,QUILL WINDER [Primary Care Provider, Internal Medicine] Time of Disposition: 17:29
== END 2025-03-04 17:52 | disposition home or self-care (01) ==
PROVIDERS: Emergency Provider Nurse Practitioner
DX: F41.0 Panic disorder [episodic paroxysmal anxiety] (principal); R23.2 Flushing
CPT/HCPCS: 99211; G0463

== ENCOUNTER 2025-03-26 11:10 | Emergency (ER) | payer OTHER, SELFPAY ==
--- NOTE | ~2025-03-26 | CT_ITS ---
Fina Abraham EXAMINATION: CT abdomen pelvis w con COMPARISON: None HISTORY: Abdominal pain TECHNIQUE: Axial images were obtained through the abdomen, pelvis post administration of IV contrast. Oral contrast was also administered. Coronal reconstruction images were obtained from the axial views. CT scan performed using dose optimization techniques including the following automated exposure control; adjustment of mA and/or kV; use of iterative reconstruction technique. Automatic exposure control was used to reduce radiation dose. Permanent radiation dose record is archived to PACS. FINDINGS: CT abdomen: LUNG BASES: The lung bases are clear. The visualized portions of the heart and pericardium are unremarkable. LIVER: Mild hepatic steatosis. Portal vein patent. No intrahepatic ductal dilatation. SPLEEN: Unremarkable. KIDNEYS: Right Kidney: Unremarkable. No calculi. No hydronephrosis. Left Kidney: Unremarkable. No calculi. No hydronephrosis ADRENAL GLANDS: Unremarkable. PANCREAS: Unremarkable. GALLBLADDER/BILIARY: Postcholecystectomy. STOMACH AND ESOPHAGUS: Visualized stomach and esophagus within normal limits. BOWEL/MESENTERY: Moderate fecal content. No colitis or diverticulitis. Appendix normal. Mesentery normal. No dilated small bowel loops. ADENOPATHY/RETROPERITONEUM: No lymphadenopathy. AORTA/VASCULATURE: Normal caliber aorta. FREE FLUID OR FREE AIR: No free fluid.. CT pelvis: SOLID ORGANS/REPRODUCTIVE: The uterine cavity is prominent probably due to the phase of menses with probable uterine fibroids noted but incompletely assessed, outpatient pelvic ultrasound is suggested. BLADDER: Within normal limits. OSSEOUS STRUCTURES: No acute osseous abnormality.No suspicious lesions. OVERLYING SOFT TISSUES: Unremarkable. IMPRESSION: 1. No acute intra-abdominal process. Incidental findings above Reviewed, dictated and finalized at location A.
--- OUTSIDE RECORDS SUMMARY | 2025-03-26 11:12 | XMS_ITS | Clinical Summary ---
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 Gender Identity Not on file Sexual Orientation Not on file Plan of Treatment Health Maintenance Due Date Last Done Comments Hepatitis C Virus (HCV) Screening 1983 Hepatitis B Immunization (1 of 3 - 19+ 3-dose series) 2002 Pap Smear 2004 Human Papillomavirus (HPV) Immunization (1 - 3-dose SCDM series) 2010 Cervical Cancer Screening (CCS) 2013 HPV/Cotest 2013 SARS-COV-2 Immunization ( season) 2024 Influenza Immunization (#1) 2025 04/14/2017 Respiratory Syncytial Virus (RSV) Immunization (Adult) (1 - 1-dose 75+ series) 2058 DTaP/Tdap/Td Immunization Discontinued 04/14/2017 TdaP Immunization Completed 04/14/2017 Meningococcal Immunization (ACWY) Aged Out No longer eligible based on patient's age to complete this topic Pneumococcal Immunization Combined Aged Out No longer eligible based on patient's age to complete this topic Rotavirus Immunization Aged Out No lo nger eligible based on patient's age to complete this topic
--- OUTSIDE RECORDS SUMMARY | 2025-03-26 11:12 | XMS_ITS | Clinical Summary ---
Author Organization [facility] Address [address] [place] [address] Care Team Providers Care Gravity Prospecting Observer Name Role Phone Yadira Asencio Primary Care [...] 8:15 AM CDT Height 160 cm (5' 3) 03/31/2023 8:15 AM CDT Body Mass Index 28.7 03/31/2023 8:15 AM CDT Plan of Treatment Health Maintenance Due Date Last Done Comments Cervical Cancer Screening 1983 Depression Screening 1983 Hepatitis C Screening 1983 DTaP/Tdap/Td Vaccine (1 - Tdap) 1994 Varicella Vaccines (1 of 2 - 13+ 2-dose series) 1996 Hepatitis B Screening 2001 Regular Well Visit/Exam 18-64 2001 HPV Vaccines (1 - 3-dose SCD M series) 2010 Influenza Vaccine (#1) 2025 Breast Cancer Screening-Mammogram 04/02/2025 04/02/2024, 03/31/2023 Pneumococcal vaccine <65 Aged Out No longer [...] to a prior imaging study performed at [facility] on 03/31/2023. The breasts are heterogeneously [...] to a prior imaging study performed at [facility] on 03/31/2023. The breasts are heterogeneously [...] Relevant to Health Maintenance Insurance Care Teams Gravity Prospecting Observer Relationship Specialty Start Date End Date Yadira Asencio PA PCP - General Physician Rehab Consultant 05/09/23
[2025-03-26 11:15] VITALS: BP 171/93; PULSE 92; RESP 18; O2SAT 99
--- NOTE | 2025-03-26 11:23 | ED_ITS ---
HPI - Abdominal Pain General Chief Complaint: Abdominal Pain Stated Complaint: abd pain Time Seen by Provider: 03/26/25 11:23 Source: patient Mode of arrival: ambulatory Limitations: no limitations History of Present Illness HPI narrative: 39 years old female, does not speak Tanzanian came with abdominal cramps, diffuse, started yesterday like gas feeling, denies any fever, chills, nausea, vomiting or diarrhea. Patient report having few loose stools 48 hours ago which resolved at that time. Currently complaining of body aches and not feeling well. Patient report the abdominal cramps intermittent, denying any aggravating or relieving factors Last menstrual cycle March 25 Related Data Allergies Allergy/AdvReac Type Severity Reaction Status Date / Time No Known Allergies Allergy Verified 03/26/25 11:18 Review of Systems 2 Review of Systems: All systems reviewed & are unremarkable except as noted in HPI and below PMFSH Past Medical History Medical History Fibroids Uterine, followed by computer forensic specialist provider Headache Surgical History Surgical History Hx laparoscopic cholecystectomy 08/11/[address] Castanon No pertinent past surgical history Family History Family History Other No significant family history Social History Social History Smoking status: Never smoker Alcohol intake: never Substance use: never Do You Feel Safe in your Home?: Yes Lack of Transportation: No Lack of Food: Never True Current Housing: I Have Housing Concerned About Future Housing: No Difficulty Paying Gas/Electric Bills: No Difficulty Paying for Meds: No Currently Unemployed: No Education: High School Diploma/GED Difficulty w/ Childcare or Family Care: No Living arrangements: with family Occupation/Education: occupation 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 Musculoskeletal: Normal range of motion, nontender back Neurologic: Alert and oriented ?3, SAFE AND VAULT INSTALLER is normal as tested, no gross motor deficit Course Vital Signs Vital signs: Vital Signs Pulse Rate 92 03/26/25 11:15 Respiratory Rate 18 03/26/25 11:15 Blood Pressure 171/93 H 03/26/25 11:15 Pulse Oximetry 99 03/26/25 11:15 Oxygen Delivery Room Air 03/26/25 11:15 Pulse Rate 92 03/26/25 11:15 Respiratory Rate 18 03/26/25 11:15 Blood Pressure 171/93 H 03/26/25 11:15 Pulse Oximetry 99 03/26/25 11:15 Oxygen Delivery Room Air 03/26/25 11:15 MDM - Abdominal Pain MDM Narrative Medical decision making narrative: Patient came to the ED with abdominal pain Vital signs showing blood pressure 171/93 otherwise within normal limit Physical examination showing diffuse tenderness of the abdomen Differential diagnosis include pancreatitis, cholecystitis, diverticulitis, constipation, urinary tract infection Blood workup today includes CBC, CMP, lipase showed no significant abnormalities Urinalysis showed 2+ blood, trace leukocyte Estrace, on a otherwise insignificant Patient tested negative for COVID flu and RSV CT abdomen and pelvis with IV contrast showed no acute abnormality Diagnosis abdominal pain, urinary tract infection Discharged on micro bed the pt was discharged to home.the pt,s condition upon discharge was fair,education was provided to the pt in reference to the final impression,discharge study results,treatment,prognosis and need for follow up . Lab Data 03/26/25 11:36 03/26/25 11:36 Labs: Lab Results 03/26/25 03/26/25 03/26/25 Range/Units 11:33 11:35 11:36 WBC 8.5 (4.5-10.0) K/mm3 RBC 5.24 (4.2-5.4) M/mm3 Hgb 14.8 (12.0-15.0) g/dL Hct 43.8 (37.0-47.0) % MCV 83.6 (80-100) fl MCH 28.2 (26-34) pg MCHC 33.8 (32-36) g/dl RDW 12.4 (11.5-14.5) % Plt Count 365 (150-375) k/mm3 MPV 9.4 (7.4-10.4) fl Immature Gran % (Auto) 0.4 (0-0.5) % Neut % (Auto) 62.0 (45.5-73.1) % Lymph % (Auto) 28.8 (18.3-44.2) % [place]wey % (Auto) 7.1 (2.6-8.5) % Eos % (Auto) 1.3 (0-4.4) % Baso % (Auto) 0.4 (0.2-1.2) % Lymph # (Auto) 2.44 (0.9-3.2) K/mm3 Dewey # (Auto) 0.6 (0.1-0.6) K/mm3 Eos # (Auto) 0.1 (0-0.3) K/mm3 Baso # (Auto) 0.0 (0.0-0.1) K/mm3 Abs Immat Gran (auto) 0.03 (0.00-0.031) K/mm3 Absolute Neuts (auto) 5.3 (1.3-6.7) K/mm3 Absolute Nucleated RBC 0.000 (0.0-0.012) K/mm3 Nucleated RBC % 0.0 (0.0-0.2) % Sodium 139 (137-145) mmol/L Potassium 3.6 (3.4-5.0) mmol/L Chloride 104 (98-107) mmol/L Carbon Dioxide 24 (22-30) mmol/L Anion Gap 11 (4-12) mmol/L BUN 11 (7-17) mg/dL Creatinine 0.68 L (0.7-1.0) mg/dL Estim Creat Clear Calc 83 ml/min Estimated GFR > 60 (59 - ) Glucose 116 H (65-110) mg/dL Calcium 9.3 (8.4-10.2) mg/dL Total Bilirubin 1.8 H (0.2-1.3) mg/dL AST 48 H (14-36) U/L ALT 63 H (6-35) U/L Alkaline Phosphatase 109 (38-126) U/L Total Protein 8.0 (6.3-8.2) g/dL Albumin 4.5 (3.5-5.1) g/dL Lipase 77 (23-300) U/L Urine Color Dark yellow (Yellow) Urine Appearance Clear (Clear) Urine pH 5.5 (5.0-9.0) Ur Specific [place] 1.026 (1.001-1.035) Urine Protein Trace (Negative) mg/dL Urine Glucose (UA) Negative (Negative) mg/dL Urine Ketones Trace H (Negative) mg/dL Ur Blood (Man) 2+ H (Negative) Urine Nitrate Negative (Negative) Urine Bilirubin Negative (Negative) Urine Urobilinogen 1.0 (<2.0) mg/dL Leukocyte Esterase Rfl Trace H (Negative) GAUDENCIO/UL Urine RBC 21-50 H (0-2) /hpf Urine WBC 0-5 (0-3) /hpf Ur Squamous Epith Cells Occasional (Few) /hpf Urine Bacteria None seen /hpf Urine Casts 0-2 POC Urine HCG, Qual Negative (Negative) Influenza A (RT-PCR) Negative (Negative) Influenza B (RT-PCR) Negative (Negative) RSV (RT-PCR) Negative (Negative) SARS-CoV-2 RNA (RT-PCR) Negative (Negative) Imaging Data Radiologist's impression: ITS Impressions Abdomen/Pelvis CT 03/26/25 12:50 IMPRESSION: 1. No acute intra-abdominal process. Incidental findings above Critical Care Time Critical Care Time Critical Care Time: No Discharge Plan Discharge Clinical Impression: Abdominal pain, Urinary tract infection Patient Disposition: Home Condition: Stable Instructions: Antibiotic Form, Urinary Tract Infection in Women (DC), Abdominal Pain (ED) Patient Language: Finnish Prescriptions: New nitrofurantoin monohyd/m-cryst [Macrobid] 100 mg capsule 100 mg PO Q12H 5 Days Qty: 10 0RF Rx Instructions: must administer with a meal/food Follow-up/Referrals: PHYSICIAN,CERTIFIED ADAPTIVE PHYSICAL EDUCATOR [Primary Care Provider, Internal Medicine]
[2025-03-26 11:34] LABS: BEDSIDEPREGUCG Negative (Negative)
[2025-03-26 11:44] LABS: Hematocrit 43.8 % (37.0-47.0); Hemoglobin 14.8 g/dL (12.0-15.0); Immature Granulocyte Percent A 0.4 % (0-0.5); Lymphocytes Absolute Auto 2.44 K/mm3 (0.9-3.2); Mean Corpuscular HGB Conc 33.8 g/dl (32-36); Mean Corpuscular Hemoglobin 28.2 pg (26-34); Mean Corpuscular Volume 83.6 fl (80-100); Nucleated Red Blood Cells Absolute Auto 0.000 K/mm3 (0.0-0.012); Nucleated Red Blood Cells Perc 0.0 % (0.0-0.2); Platelet Count Result 365 k/mm3 (150-375); Red Blood Count 5.24 M/mm3 (4.2-5.4); White Blood Count 8.5 K/mm3 (4.5-10.0)
[2025-03-26] MEDS: SODIUM CHLORIDE 0.9% IV 1,000 ML 999 ML IV CONT (11:44)
[2025-03-26 11:49] LABS: Add Urine Microscopic? YES; Appearance Urine Clear (Clear); Glucose Urine UA Negative (Negative); Leukocyte Esterase Ur Trace LEU/UL (Negative); Nitrate Urine Negative (Negative); Non Pathogenic Casts 0-2; Specific Grav Ur 1.026 (1.001-1.035)
[2025-03-26 11:58] LABS: Alanine Aminotransferase 63 U/L (6-35); Albumin Level 4.5 g/dL (3.5-5.1); Alkaline Phosphatase 109 U/L (38-126); Anion Gap 11 mmol/L (4-12); Aspartate Amino Transferase 48 U/L (14-36); Bilirubin,Total 1.8 mg/dL (0.2-1.3); Blood Urea Nitrogen 11 mg/dL (7-17); Calcium 9.3 mg/dL (8.4-10.2); Carbon Dioxide 24 mmol/L (22-30); Chloride 104 mmol/L (98-107); Estimated CRCL calculation 83 ml/min; Estimated Glomerular Filt Rate > 60; Glucose 116 mg/dL (65-110); Lipase 77 U/L (23-300); Potassium 3.6 mmol/L (3.4-5.0); Sodium 139 mmol/L (137-145); Total Protein 8.0 g/dL (6.3-8.2)
[2025-03-26 13:25] LABS: Influenza A QL RT-PCR Negative (Negative); Influenza B QL RT-PCR Negative (Negative); RSV RNA, RT-PCR Negative (Negative); SARS-CoV-2 RNA PCR Negative (Negative)
[2025-03-26 14:04] VITALS: BP 112/74; PULSE 72; RESP 16; TEMP 36.8; O2SAT 100
== END 2025-03-26 14:09 | disposition home or self-care (01) ==
PROVIDERS: Emergency Provider Emergency Medicine
DX: N39.0 Urinary tract infection, site not specified (principal); R10.84 Generalized abdominal pain; Z20.822 Contact with and (suspected) exposure to COVID-19
CPT/HCPCS: 36415; 74177; 80053; 81001; 81025; 83690; 85025; 87637; 96360; 99284; J7030; Q9967

== ENCOUNTER 2025-06-23 08:54 | Emergency (ER) | payer OTHER, SELFPAY ==
[2025-06-23 09:04] VITALS: BP 124/63; PULSE 72; RESP 18; TEMP 37; O2SAT 99
--- NOTE | 2025-06-23 09:07 | ED.EYEPROB ---
HPI - Eye Problem General Chief complaint: Eye Problems Stated complaint: Eyes Irritation Time Seen by Provider: 06/23/25 08:57 Source: patient Mode of arrival: ambulatory Limitations: no limitations History of Present Illness HPI Narrative: patient is a 40-year-old female who presents with left eye irritation for 1 week. Patient states it feels like something is in her eye but it is not painful. Patient reports feeling like that outer part of her eye is slightly swollen. Denies any vision changes, discharge or redness. Has had some photosensitivity. Does have an eye appointment on the Related Data Allergies Allergy/AdvReac Type Severity Reaction Status Date / Time No Known Allergies Allergy Verified 06/23/25 09:12 Review of Systems Review of Systems: All systems reviewed & are unremarkable except as noted in HPI and below Constitutional: Constitutional: Denies body ache(s), Denies fever(s), Denies headache(s), Denies malaise and Denies weakness Eyes: Eyes: Denies blurry vision, Denies eye discharge, Reports irritation, Denies itchy eyes, Denies loss of vision, Denies eye pain and Reports photophobia ENT: Denies otalgia, Denies headache(s), Denies nasal discharge, Denies sinus pain and Denies sore throat Cardiovascular: Cardiovascular: Denies chest pain, Denies irregular heart rhythm and Denies dyspnea Respiratory: Respiratory: Denies dyspnea Gastrointestinal: Gastrointestinal: Denies abdominal pain, Denies diarrhea, Denies nausea and Denies vomiting Musculoskeletal: Musculoskeletal: Denies back pain, Denies myalgias and Denies arthralgias Integumentary/Breasts: Skin/Breast: Denies pruritus and Denies rash Neurologic: Denies headache(s), Denies loss of vision and Denies weakness Psychiatric: Psychiatric: Reports no additional psychiatric complaints Allergic/Immunologic: Allergic/Immunologic: Reports itchy eyes PMFSH Past Medical History Medical History Fibroids Uterine, followed by wet chemistry analyst provider Headache Surgical History Surgical History Hx laparoscopic cholecystectomy 08/11/[address] 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 There is no relevant family history pertinent to the presenting complaint. Exam Const: General: cooperative, healthy appearing, comfortable, no acute distress and well nourished Nutritional Appearance: well nourished Orientation/consciousness: patient oriented x3 Limitations: no limitations HENMT: Head: normal to inspection, normocephalic and atraumatic Ears: external ears normal Face/Nose/Sinus: Normal external nose present, normal facial exam and face symmetric Face and sinus: normal facial exam and face symmetric Mouth: Yes lip normal Eyes: General: appearance normal, both eyes and all related structures Visual Rojas: normal visual rojas by confrontation Alignment and Position: alignment normal and position normal Periorbital: periorbital findings normal Eyelids: eyelids normal Conjunctivae: conjunctivae normal Sclera: scleral abnormality left scleral injection lateral and scleral tenderness Pupils: Equal, round and reactive pupils present EOM: EOMs intact bilaterally Direct Ophthalmoscopy: photophobia Other: No hyphema, no foreign body under the lids. Neck: Neck: normal visual inspection, full ROM, no lymphadenopathy and no meningeal signs Chest: Chest palpation & inspection: normal inspection of the chest Resp: Effort & Inspection: normal respiratory effort and able to speak in complete sentences Auscultation: clear to auscultation bilaterally Cardio: Rate: regular rate Rhythm: regular rhythm Heart sounds: S1 normal heart sound present and S2 normal heart sound present GI: Inspection: normal to inspection Skin: General skin exam: normal color and no rashes or lesions noted Neuro: General: patient oriented x3, moves all extremities and no meningeal signs Cranial nerves: Yes Equal, round and reactive pupils present Speech: normal speech Gait exam (Neuro): Normal gait present Extrem: General: normal to inspection, full ROM and no edema Psych: Appearance: grossly normal and well kempt Mental Status: mental status grossly normal Speech and movement: Normal speech and movement present Affect: normal affect Attitude: cooperative Thought process: Normal thought process present Course Course Emergency Course: Patient is aware of diagnosis, understands and agrees to treatment plan. Anticipatory guidance given. Patient agrees to follow-up as directed and is aware of reasons to seek care at the emergency department. Portions of this record may have been created with voice recognition software Level of Care: Express Care Visit Vital Signs Vital signs: Vital Signs Temperature 37.0 C 06/23/25 09:04 Pulse Rate 72 06/23/25 09:04 Respiratory Rate 18 06/23/25 09:04 Blood Pressure 124/63 06/23/25 09:04 Pulse Oximetry 99 06/23/25 09:04 Oxygen Delivery Room Air 06/23/25 09:04 Temperature 37.0 C 06/23/25 09:04 Pulse Rate 72 06/23/25 09:04 Respiratory Rate 18 06/23/25 09:04 Blood Pressure 124/63 06/23/25 09:04 Pulse Oximetry 99 06/23/25 09:04 Oxygen Delivery Room Air 06/23/25 09:04 [facility] MDM Narrative Medical decision making narrative: Pt well hydrated appearing, in no respiratory distress, hemodynamically stable. Recommend supportive care. The patient is stable at time of discharge the clinical impression was discussed and the patient was given the opportunity to ask questions, which were addressed as completely as possible given the information available at present. Anticipatory guidance and return to care precautions were discussed and the importance of primary care follow-up was stressed and encouraged. The patient voiced understanding of the plan, indications to return, and the need for follow-up. Exam findings show no acute concerns or changes Patient is appropriate for outpatient treatment and follow-up. Differential Diagnosis Differential Diagnosis: conjunctivitis, blepharitis, stye, chalazion, less likely orbital cellulitis Medical Records I have reviewed the following patient records and this information was taken into consideration when formulating the assessment and plan.: previous clinic visits Discharge Plan Discharge Clinical Impression: Eye infection Qualifiers: Laterality: left Qualified Code(s): H44.002 - Unspecified purulent endophthalmitis, left eye Patient Disposition: Home Condition: Stable Instructions: Eyelid Swelling (ED) Additional Instructions: Eye drops as prescribed. -Do this for 3 to 4 days until all redness and discomfort has disappeared. -Cold compresses to the affected eye for comfort -Alternate or take Tylenol or ibuprofen as directed in the bottle for pain -Avoid screen time--television, computer, tablet or phone. -Practice good handwashing and hygiene to prevent spread of infection Follow-up with PCP or journal clerk if condition is not improving in 2-3days. Go to the emergency room if you have pain behind your eye, pressure behind her eye, difficulty seeing, or other severe symptoms You should follow-up with an eye doctor within the next 72 hours [facility]: [facility]- [phone] [place] [phone] [facility] [phone] [place]: [facility] [phone] or [phone] [facility] [phone] [place] [phone] [facility] [phone] [facility] Ophthalmology- [phone] Patient Language: Kinyarwanda Prescriptions: New ofloxacin 0.3 % drops See Rx Instructions .ROUTE .COMPLEX Qty: 10 0RF Rx Instructions: put 1-2 drps into left eye every 2-4 h x 2 days, then 1-2 drps 4 times/day days 3-7 Follow-up/Referrals: Bruno Hawkins MD [Physician, Family Practice] - 3 Days Time of Disposition: 09:56
== END 2025-06-23 10:05 | disposition home or self-care (01) ==
PROVIDERS: Emergency Provider Nurse Practitioner Family
DX: H44.002 Unspecified purulent endophthalmitis, left eye (principal)
CPT/HCPCS: 99213; G0463